=== PATIENT | male | born 1960 | race Caucasian/White ===

== ENCOUNTER 2021-04-28 21:31 | Emergency (ER) | payer OTHER, SELFPAY ==
[2021-04-28 21:49] VITALS: BP 171/100; PULSE 86; RESP 18; TEMP 36.6; O2SAT 97; BMI 26.6
--- NOTE | 2021-04-28 22:47 | PC.NURSE ---
large deep red area mid spine with 3 sml white pimples. Pt states he burned area with a hot knife when it wouldn't stop itching.
[2021-04-28 22:53] VITALS: BP 160/77
--- NOTE | 2021-04-28 22:55 | ED.SKABFB ---
HPI - Skin/Abscess/Foreign Bdy General Chief complaint: Skin/Abscess/Foreign Body Stated complaint: back infection Time Seen by Provider: 04/28/21 22:55 Source: patient Mode of arrival: ambulatory Limitations: no limitations History of Present Illness HPI narrative: Patient was working in the basement standing against wall 5 days ago noticed small pimple at the back since then is getting bigger and red with slight pus discharge. Related Data Home Medications Medication Instructions Recorded Confirmed fluticasone propionate 50 INTRANASAL 09/17/20 01/14/21 mcg/actuation nasal spray,suspension Previous Rx's Medication Instructions Recorded albuterol sulfate 90 mcg/actuation 2 puff INHALATION Q6H PRN 30 Days 01/14/21 aerosol inhaler (ProAir HFA) #18 g amlodipine 5 mg tablet 5 mg PO DAILY 30 Days #30 tab 01/14/21 ibuprofen 800 mg tablet 800 mg PO TID 30 Days #90 tab 01/14/21 tamsulosin 0.4 mg capsule 0.4 mg PO BEDTIME 30 Days #30 cap 01/14/21 cephalexin 500 mg capsule 500 mg PO QID 10 Days #40 cap 04/28/21 doxycycline hyclate 100 mg capsule 100 mg PO BID #20 cap 04/28/21 ibuprofen 600 mg tablet 600 mg PO Q6H PRN #20 tab 04/28/21 Allergies Allergy/AdvReac Type Severity Reaction Status Date / Time acetaminophen [ACETAMINOPHEN] Allergy Intermediate RASH Verified 01/14/21 09:20 Review of Systems Review of Systems: Yes all other systems are reviewed and are negative PMFSH Past Medical History Attestation statement: The following information was validated with the patient. Medical History Benign essential hypertension Blurred vision, bilateral Overweight (BMI 25.0-29.9) Surgical History H/O arthroscopy of right knee H/O bilateral inguinal hernia repair H/O repair of right rotator cuff History of sinus surgery Family History Family History Father No problems noted. Mother No problems noted. Social History Social History Alcohol intake: never Cigarette Packs Per Day: 1 Advance Directives: No Physical Exam Vital Signs: Vital Signs: Last Vital Signs Temp 97.9 F 04/28/21 21:49 Pulse 86 04/28/21 21:49 Resp 18 04/28/21 21:49 BP 160/77 H 04/28/21 22:53 Pulse Ox 97 04/28/21 21:49 Body Mass Index 26.6 Const: General: no acute distress Orientation/consciousness: patient oriented x3 HENMT: Head: Yes normocephalic Resp: Effort & Inspection: normal respiratory effort Auscultation: clear to auscultation bilaterally Cardio: Rate: regular rate Rhythm: regular rhythm Heart sounds: S1 normal heart sound present and S2 normal heart sound present Peripheral pulses: Peripheral pulses 2+ throughout GI: Inspection: Yes normal to inspection Palpation (GI): Soft to palpation and nontender Auscultation: normal bowel sounds Back/Spine/Pelvis: Back/spine/pelvis image: 1. Superficial abscess with surrounding cellulitis Neuro: General: patient oriented x3 Procedures Abscess I/D Site: back Local Anesthetic: lidocaine 2% Amount of anesthesia used (mL): 10 Technique: incised with blade Amount of fluid expressed (mL): 5 Sent for culture/gram staining?: No Irrigation: No Packing used?: iodoform Discharge Plan Discharge Clinical Impression: Abscess of skin or subcutaneous tissue Qualifiers: Site of cutaneous abscess: trunk Site of cutaneous abscess of trunk: back Qualified Code(s): L02.212 - Cutaneous abscess of back [any part, except buttock] Patient Disposition: Home, Self-Care Instructions: Abscess Incision and Drainage (DC) Additional Instructions: Local care of abscess as advised. Remove the packing in 2 days. Take antibiotic as prescribed. Report to the ER/PCP if increase in the redness or swelling or pain Prescriptions: New doxycycline hyclate 100 mg capsule 100 mg PO BID Qty: 20 RF: 0 cephalexin 500 mg capsule 500 mg PO QID 10 Days Qty: 40 RF: 0 ibuprofen 600 mg tablet 600 mg PO Q6H PRN (Reason: pain) Qty: 20 RF: 0 No Action fluticasone propionate 50 mcg/actuation spray,suspension intranasal RF: 0 albuterol sulfate [ProAir HFA] 90 mcg/actuation HFA aerosol inhaler 2 puff inhalation Q6H PRN (Reason: shortness of breath or wheezing) 30 Days Qty: 18 RF: 3 amlodipine 5 mg tablet 5 mg PO DAILY 30 Days Qty: 30 RF: 3 ibuprofen 800 mg tablet 800 mg PO TID 30 Days Qty: 90 RF: 1 tamsulosin 0.4 mg capsule 0.4 mg PO BEDTIME 30 Days Qty: 30 RF: 3 Interventions: ED Discharge Assessment Last Done: 04/29/21 00:27 Discharge Date/Time: 04/29/21 00:28
[2021-04-28] MEDS: Lidocaine HCl 2 % MPF 5 ML VIAL 10 ML INFILTRATI (23:09)
[2021-04-28] MEDS: cephALEXin 500 MG CAPSULE 1000 MG PO (23:09)
== END 2021-04-29 00:28 | disposition home or self-care (01) ==
PROVIDERS: Emergency Provider Internal Medicine
DX: L02.212 Cutaneous abscess of back [any part, except buttock and flank] (principal); Z79.899 Other long term (current) drug therapy; F17.210 Nicotine dependence, cigarettes, uncomplicated; Z71.6 Tobacco abuse counseling
CPT/HCPCS: 10060; 96360; 99283; 99284

== ENCOUNTER 2023-08-16 10:39 | Outpatient (AMB) | payer OTHER, SELFPAY ==
[2023-08-16 10:44] VITALS: BP 152/78; PULSE 79; O2SAT 93; BMI 24.4
--- NOTE | 2023-08-16 10:44 | MHC.PC.OV ---
Vital Signs 08/16/23 10:44 Height 5 ft 8 in Weight 160 lb 8 oz BMI 24.4 BP 152/78 H Blood Pressure Location Lt brachial Position Sitting Pulse 79 Pulse Source Pulse Oximeter Pulse Oximetry (%) 93 Oxygen Delivery Method Room Air Intake Visit Reasons: Sinus infection Hide Dropper Required: No Accompanied by: Self / Same As Patient Allergies acetaminophen [ACETAMINOPHEN] Allergy (Intermediate, Verified 08/16/23 11:10) RASH Medication List - Last Reconciled 08/16/23 by Edi Salazar MD albuterol sulfate 90 mcg/actuation (ProAir HFA) 2 puffs inhalation Q6H PRN 30 days amlodipine 5 mg PO DAILY 30 days fluticasone propionate 50 mcg/actuation 2 sprays intranasal DAILY ibuprofen 800 mg PO TID 30 days tamsulosin 0.4 mg PO BEDTIME 30 days Tobacco use date assessed: 08/16/23 Dental Screening Dental Screen Date: 08/16/23 Did you have a dental visit in the last 12 months?: No Did you have a dental problem in the last 6 months where you did not have access to dental care?: No Was dental information given to patient?: No HPI Sinus infection HPI Details Patient comes in today complaining of increased nasal and sinus congestion, sinus pain and discomfort for at least 2 weeks now States that 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 her home 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 States that he has tried several OTC remedies lately without any relief Relates (+) pressure and sometimes pain behind his eyes, has had on and off headaches and states that he has also had some bloody nasal discharge lately He denies any fever or sore throat Denies any chest pains, no SOB No nausea/vomiting, no abdominal pain No change in bowel habits noted States that he has lost a lot of weight over the past couple of years mostly by eating healthier and better foods; he was last seen by me in December 2020 although he has been in a couple of times for SDVs and was seen by our nurse practitioners then [facility] Medical History Smoker Benign essential hypertension Overweight (BMI 25.0-29.9) Blurred vision, bilateral Surgical History History of sinus surgery H/O repair of right rotator cuff (~2011) H/O bilateral inguinal hernia repair H/O arthroscopy of right knee (~1979) Family History (Updated 08/16/23 @ 11:30 by Edi Salazar MD) Mother COPD (chronic obstructive pulmonary disease) Father Lung cancer Social History Alcohol intake: never Cigarette Packs Per Day: 1 e-Cigarette/Vaping Use: Never Used Cognitive needs: No Hearing needs: No Vision needs: No Questionnaire PHQ-9 Over the last 2 weeks, how often have you been bothered by any of the following problems? 1. Little interest or pleasure in doing things: not at all 2. Feeling down, depressed, or hopeless: not at all 3. Trouble falling or staying asleep, or sleeping too much: not at all 4. Feeling tired or having little energy: not at all 5. Poor appetite or overeating: not at all 6. Feeling bad about yourself - or that you are a failure or have let yourself or your family down: not at all 7. Trouble concentrating on things, such as reading the newspaper or watching television: not at all 8. Moving or speaking so slowly that other people could have noticed. Or the opposite - being so fidgety or restless that you have been moving around a lot more than usual: not at all 9. Thoughts that you would be better off or of hurting yourself in some way: not at all Total score: 0 Depression Screening Interpretation: Negative Depression Screening Done: Yes 72612 - PHQ-9 Billing: Yes Source: Developed by Drs. Reza Pearl, Tanya Plasencia, Shai Delaney and colleagues, with an educational jeanette from [employer]. Thrive Questionnaire Date Thrive assessed: 08/16/23 I am a: Patient What is your living situation today?: I have a steady place to live Within the past 12 months, did the food you bought not last and you didn't have the money to get more?: Never true Within the past 12 months, did you worry whether your food would run out before you got money to buy more?: Never true Do you have trouble paying for medicines?: No Do you have trouble getting transportation to medical appointments?: No Do you have trouble paying your heating and electricity bill?: No Do you have trouble taking care of your child, family member or friend?: No Do you have trouble with day-to-day activities such as bathing, preparing meals, shopping, managing finances, etc.?: No Are you currently unemployed and looking for a job?: No Are you interested in more education?: No Please select the resources that you would like help with: None Currently or been in a relationship where the following occur: no concerns reported AUDIT C Alcohol Use Questionnaire (AUDIT-C) 1. How often do you have a drink containing alcohol?: Never Total Score: 0 Score Reviewed/Action Taken: Yes CASSIE-7 AMB Questionnaire CASSIE-7 Date CASSIE - 7 assessed: 08/16/23 Feeling nervous, anxious, or on edge: 0 = Not at all Not being able to stop or control worryin = Not at all Worrying too much about different things: 0 = Not at all Trouble relaxin = Not at all Being so restless that it is hard to sit still: 0 = Not at all Becoming easily annoyed or irritable: 0 = Not at all Feeling afraid as if something awful might happen: 0 = Not at all Total CASSIE-7 score (0-4 normal; 5-9 mild; 10-14 moderate; 15-21 severe): 0 Source: Developed by Drs. Reza Pearl, Tanya Plasencia, Shai Delaney and colleagues, with an educational jeanette from [employer]. Review of Systems Const Denies chills, Denies fatigue, Denies fever(s) and Reports headache(s) (on and off) Eyes Details: (+) on and off pain and pressure behind both eyes lately ENT Denies dysphagia, Denies dizziness, Denies otalgia, Reports headache(s) (on and off), Reports nasal congestion, Denies neck pain, Denies odynophagia, Reports sinus pain, Reports sinus pressure and Denies sore throat Card Denies chest pain, Denies palpitations and Denies dyspnea Resp Denies cough and Denies dyspnea GI Denies abdominal pain, Denies constipation, Denies dysphagia, Denies heartburn, Denies diarrhea, Denies nausea, Denies odynophagia and Denies vomiting Denies dysuria, Denies nocturia and Denies urinary frequency Musc Denies neck pain Skin/Breast Denies rash Neuro Denies dizziness and Reports headache(s) (on and off) Endo Denies fatigue and Denies palpitations Physical exam (Primary Care) Vital Signs: Last Vital Signs Pulse 79 08/16/23 10:44 BP 152/78 H 08/16/23 10:44 Pulse Ox 93 08/16/23 10:44 Oxygen Delivery Method Room Air 08/16/23 10:44 BMI result Body Mass Index 24.4 Tobacco/Smoking Status: Tobacco use Status Tobacco use date assessed 08/16/23 08/16/23 10:46 e-Cigarette/Vaping Use Never Used 08/16/23 10:46 PHQ-9: PHQ-9 Score PHQ-9: Total score 0 08/16/23 10:56 Depression Screening Interpretation: Negative Thrive Assessment: Date of Thrive Assessment Date Thrive assessed 08/16/23 08/16/23 10:46 Currently or been in a relationship where the following occur: no concerns reported Const General: no acute distress and alert HENMT Ears: TM's normal bilaterally and EAC's normal Face and sinus: Yes sinus tenderness (bilateral) Throat: Yes posterior oropharynx normal and Yes tonsils normal (no TP congestion) Neck Neck: Yes no lymphadenopathy and Yes supple Resp Auscultation: no rales, rhonchi (occasional) throughout and no wheezes Cardio Rate: regular rate Rhythm: regular rhythm Heart sounds: no murmurs GI Palpation (GI): Soft to palpation and nontender Auscultation: normal bowel sounds Skin General skin exam: no rashes or lesions noted Extrem General: Yes no clubbing, cyanosis or edema Assessment and Plan Assessment & Plan (1) Sinusitis: Code(s): J32.9 - Chronic sinusitis, unspecified Qualifiers: Sinusitis location: maxillary Chronicity: acute Recurrence: non-recurrent Qualified Code(s): J01.00 - Acute maxillary sinusitis, unspecified Plan: Will start patient empirically on Augmentin 875 mg BID x 10 days Advised that he can continue taking his OTC sinus meds PRN for symptomatic relief as well as his Fluticasone 50 mcg nasal spray QD PRN (2) Benign essential hypertension: Code(s): I10 - Essential (primary) hypertension Plan: Reinforced low sodium diet - goal is systolic BP of 120 mm or less Continue Amlodipine 5 mg QD for now (3) Smoker: Code(s): F17.200 - Nicotine dependence, unspecified, uncomplicated Plan: Counseled again on smoking cessation Plan To return in December 2023 for his annual physical examination Medications: New amoxicillin-pot clavulanate 875-125 mg 1 tab PO BID 10 days 20 tabs 0RF Coding Level of Care Code Est Pt Level 3 (63675) Diagnoses Acute non-recurrent maxillary sinusitis J01.00 Sinusitis location: maxillary Chronicity: acute Recurrence: non-recurrent Benign essential hypertension I10 Smoker F17.200
== END 2023-08-16 11:20 | disposition home or self-care (01) ==
PROVIDERS: PCP Internal Medicine; Visit Provider Internal Medicine
DX: J01.00 Acute maxillary sinusitis, unspecified (principal); I10 Essential (primary) hypertension; F17.200 Nicotine dependence, unspecified, uncomplicated
CPT/HCPCS: 99213

== ENCOUNTER 2025-01-21 16:26 | Outpatient (AMB) | payer OTHER, SELFPAY ==
--- NOTE | 2025-01-21 16:32 | A.OFFPC_ITS ---
Vital Signs 01/21/25 16:50 Height 5 ft 8 in Weight 184 lb BMI 28.0 BP 182/98 H Blood Pressure Location Lt brachial Position Sitting Pulse 81 Pulse Source Pulse Oximeter Temp 97.7 F Temp Source Temporal Artery Scan Pulse Oximetry (%) 94 Oxygen Delivery Method Room Air Intake Visit Reasons: annual exam [employer] Required: No Accompanied by: Self / Same As Patient Allergies acetaminophen [ACETAMINOPHEN] Allergy (Intermediate, Verified 01/22/25 02:33) RASH Medication List - Last Reconciled 01/21/25 by Edi Salazar MD amlodipine 5 mg PO DAILY 30 days fluticasone propionate 50 mcg/actuation 2 sprays intranasal DAILY ibuprofen 800 mg PO TID 30 days tamsulosin 0.4 mg PO BEDTIME 30 days Ventolin HFA 90 mcg/actuation (albuterol sulfate) 2 puffs inhalation Q6H PRN 30 days NS Tobacco use date assessed: 01/21/25 Fall risk assessment: No Falls in past year Last assessed Fall Risk: 01/21/25 Dental Screening Dental Screen Date: 01/21/25 Did you have a dental visit in the last 12 months?: Yes Did you have a dental problem in the last 6 months where you did not have access to dental care?: No Was dental information given to patient?: Patient has dentist HPI annual exam HPI Details Patient comes in today for his annual physical examination - he was last seen here almost 2 years ago on 08/16/2023 States that he has been out of his BP med for a couple of months now and needs this refilled as his blood pressure has been running high consistently for a few months now Patient is also requesting for Rx for Nicotine patches to help him quit smoking States that he has been coughing a lot and his chest feels congested all the time due to his smoking for years and would like to get a refill on his Albuterol inhaler as well Patient denies any fever or sore throat; denies any headaches or dizziness Denies any chest pains No nausea/vomiting, no abdominal pain No change in bowel habits noted He denies any acute urinary symptoms Patient adds that he has been noticing recurrent itching especially on his forearms and that he has noticed what he thinks look like susan tracks on his forearms and he is concerned that he may have scabies - would like to get Rx to treat this He has been referred for a screening colonoscopy in the past but it does not appear that patient ever had this done He also has not had any follow up labs done here at [facility] in over 5 years [facility] Medical History Smoker Benign essential hypertension Overweight (BMI 25.0-29.9) Blurred vision, bilateral Surgical History History of sinus surgery H/O repair of right rotator cuff (~2011) H/O bilateral inguinal hernia repair H/O arthroscopy of right knee (~1979) Family History Mother COPD (chronic obstructive pulmonary disease) Father Lung cancer Social History Housing: House Alcohol intake: never Cigarette Packs Per Day: 1 e-Cigarette/Vaping Use: Never Used service: No Current occupational status: unemployed Cognitive needs: No Hearing needs: No Vision needs: No Questionnaire PHQ-9 Over the last 2 weeks, how often have you been bothered by any of the following problems? 1. Little interest or pleasure in doing things: not at all 2. Feeling down, depressed, or hopeless: not at all 3. Trouble falling or staying asleep, or sleeping too much: not at all 4. Feeling tired or having little energy: not at all 5. Poor appetite or overeating: not at all 6. Feeling bad about yourself - or that you are a failure or have let yourself or your family down: not at all 7. Trouble concentrating on things, such as reading the newspaper or watching television: not at all 8. Moving or speaking so slowly that other people could have noticed. Or the opposite - being so fidgety or restless that you have been moving around a lot more than usual: not at all 9. Thoughts that you would be better off or of hurting yourself in some way: not at all Total score: 0 Depression Screening Interpretation: Negative Depression Screening Done: Yes 50551 - PHQ-9 Billing: Yes Source: Developed by Tanya OliveiraW. Luis Angel, Shai Delaney and colleagues, with an educational jeanette from [employer]. Thrive Questionnaire Date Thrive assessed: 01/21/25 I am a: Patient What is your living situation today?: I choose not to answer this question Within the past 12 months, did the food you bought not last and you didn't have the money to get more?: I choose not to answer this question Within the past 12 months, did you worry whether your food would run out before you got money to buy more?: I choose not to answer this question Do you have trouble paying for medicines?: I choose not to answer this question Do you have trouble getting transportation to medical appointments?: I choose not to answer this question Do you have trouble paying your heating and electricity bill?: I choose not to answer this question Do you have trouble taking care of your child, family member or friend?: I choose not to answer this question Do you have trouble with day-to-day activities such as bathing, preparing meals, shopping, managing finances, etc.?: I choose not to answer this question Are you currently unemployed and looking for a job?: I choose not to answer this question Are you interested in more education?: I choose not to answer this question Please select the resources that you would like help with: None Currently or been in a relationship where the following occur: I choose not to answer THRIVE Score: 0 AUDIT C Alcohol Use Questionnaire (AUDIT-C) 1. How often do you have a drink containing alcohol?: Never 3. How often do you have six or more drinks on one occasion?: Never Total Score: 0 Score Reviewed/Action Taken: Yes CASSIE-7 AMB Questionnaire CASSIE-7 Date CASSIE - 7 assessed: 01/21/25 Feeling nervous, anxious, or on edge: 0 = Not at all Not being able to stop or control worryin = Not at all Worrying too much about different things: 0 = Not at all Trouble relaxin = Not at all Being so restless that it is hard to sit still: 0 = Not at all Becoming easily annoyed or irritable: 0 = Not at all Feeling afraid as if something awful might happen: 0 = Not at all Total CASSIE-7 score (0-4 normal; 5-9 mild; 10-14 moderate; 15-21 severe): 0 Source: Developed by Drs. Reza Pearl, Tanya Plasencia, Shai Delaney and colleagues, with an educational jeanette from [employer]. CASSIE-7 Assessment Billing CASSIE-7 Assessment Tool: CASSIE-7 Assessment 96820 Review of Systems Const Denies chills, Denies fatigue, Denies fever(s), Denies headache(s), Denies malaise and Denies weakness Eyes Denies blurry vision, Denies change in vision, Denies irritation and Denies itchy eyes ENT Denies dysphagia, Denies dizziness, Denies otalgia, Denies headache(s), Denies nasal congestion, Denies neck pain, Denies odynophagia and Denies sore throat Card Denies chest pain, Denies rapid heart rate, Denies irregular heart rhythm, Denies palpitations and Reports dyspnea on exertion Resp Reports chest congestion, Reports cough (recurrent), Denies pain with cough, Reports dyspnea on exertion and Denies wheezing GI Denies abdominal pain, Denies bloating, Denies constipation, Denies dysphagia, Denies heartburn, Denies diarrhea, Denies nausea, Denies odynophagia and Denies vomiting Denies hematuria, Denies difficulty urinating, Denies dysuria, Denies urinary frequency and Denies urinary urgency Musc Denies back pain, Denies arthralgias, Denies joint swelling, Denies muscle weakness and Denies neck pain Skin/Breast Denies change in pigmentation, Reports pruritus, Denies lesions, Reports rash (on both forearms - see HPI) and Denies unusual bruising Neuro Denies dizziness, Denies headache(s), Denies paresthesias and Denies weakness Endo Denies fatigue and Denies palpitations Aller/Immun Denies itchy eyes and Denies wheezing Physical exam (Primary Care) Vital Signs: Last Vital Signs Temp 97.7 F 01/21/25 16:50 Pulse 81 01/21/25 16:50 BP 182/98 H 01/21/25 16:50 Pulse Ox 94 01/21/25 16:50 Oxygen Delivery Method Room Air 01/21/25 16:50 BMI result Body Mass Index 28.0 Tobacco/Smoking Status: Tobacco use Status Tobacco use date assessed 01/21/25 01/21/25 17:01 e-Cigarette/Vaping Use Never Used 01/21/25 16:33 PHQ-9: PHQ-9 Score PHQ-9: Total score 0 01/21/25 17:01 Depression Screening Interpretation: Negative Thrive Assessment: Date of Thrive Assessment Date Thrive assessed 01/21/25 01/21/25 16:33 Currently or been in a relationship where the following occur: I choose not to answer Const General: no acute distress, alert and awake Orientation/consciousness: patient oriented x3 HENMT Head: Yes normocephalic and Yes atraumatic Ears: external ears normal, TM's normal bilaterally and EAC's normal General nose exam: No nasal discharge present Face and sinus: Yes normal facial exam and Yes sinuses nontender Teeth and gingiva: dentition normal Throat: Yes posterior oropharynx normal and Yes tonsils normal (no TP congestion) Eyes Eyelids: Yes eyelids normal Conjunctivae: conjunctivae normal Pupils: Equal, round and reactive pupils present EOM: EOMs intact bilaterally Neck Neck: Yes no lymphadenopathy and Yes supple Thyroid: Thyroid normal Resp Auscultation: no crackles, no rales, rhonchi (scattered) throughout, no wheezes and diminished lung sounds bilateral Cardio Rate: regular rate Rhythm: regular rhythm Heart sounds: no murmurs GI Palpation (GI): Soft to palpation, nontender and No hepatosplenomegaly present Auscultation: normal bowel sounds General: Yes no CVA tenderness Back/Spine/Pelvis Back: no CVA tenderness Thoracic/Lumbar Spine: thoracic and lumbar spine normal to inspection Skin Other: (+) few crusted-linear lesions on the volar aspect of both ofrearms Neuro General: patient oriented x3, moves all extremities, no focal motor deficits and CN's II-XI intact bilaterally Cranial nerves: Yes Equal, round and reactive pupils present Cognition (Neuro): normal cognition Gait exam (Neuro): Normal gait present Extrem General: Yes no clubbing, cyanosis or edema Coding Level of Care Code Est Pt Prev Care 40-64y(31844) Diagnoses Annual physical exam Z00.00 Benign essential hypertension I10 Chest congestion R09.89 Pruritic rash L28.2 Benign prostatic hyperplasia with urinary hesitancy N40.1; R39.11 Lower urinary tract symptom detail: urinary hesitancy Smoker F17.200 Colon cancer screening Z12.11 Additional Codes CASSIE-7 Assessment Billing - CASSIE-7 Assessment Tool: CASSIE-7 Assessment 71912 ([id number]) PHQ-9 - 61287 - PHQ-9 Billing: Yes ([id number]) Assessment & Plan Assessment & Plan (1) Annual physical exam: Code(s): Z00.00 - Encounter for general adult medical examination without abnormal findings Category: Medical Plan: Check labs - patient is advised to try to get these done RYLIE as he has not had any follow up labs done (at least here at [facility]) in over 5 years He is long overdue to start colon cancer screening and will be referred to GI for this (2) Benign essential hypertension: Code(s): I10 - Essential (primary) hypertension Category: Medical Plan: Patient states that he has been out of his BP med for a few weeks Will start him back on Amlodipine 5 mg QD - he is reminded of goal og systolic BP at 120 mm or less (3) Chest congestion: Code(s): R09.89 - Other specified symptoms and signs involving the circulatory and respiratory systems Category: Medical Plan: Patient is advised that due to his long smoking history, he most likely has COPD Will send him for chest x-rays for further evaluation Chest x-rays done back in October 2019 came out normal Per request, will refill his Albuterol HFA 1 to 2 inhalations Q 6 hours PRN (4) Pruritic rash: Code(s): L28.2 - Other prurigo Category: Medical Plan: Per request, will start him on empiric Tx with Permethrin 5% lotion as instructed (5) Benign prostatic hyperplasia with lower urinary tract symptoms: Code(s): N40.1 - Benign prostatic hyperplasia with lower urinary tract symptoms Category: Medical Qualifiers: Lower urinary tract symptom detail: urinary hesitancy Qualified Code(s): N40.1 - Benign prostatic hyperplasia with lower urinary tract symptoms; R39.11 - Hesitancy of micturition Plan: Continue Tamsulosin 0.4 mg Q HS Follow up with urology as scheduled (6) Smoker: Code(s): F17.200 - Nicotine dependence, unspecified, uncomplicated Category: Social Hx Plan: Patient is again counseled on complete smoking cessation Per request, will start him on Nicotine patches to help him quit smoking (7) Colon cancer screening: Code(s): Z12.11 - Encounter for screening for malignant neoplasm of colon Category: Medical Plan: Patient was referred for colon cancer screening a few years ago but it appears that he never followed through with this Will refer him to GI again for colon cancer screening Plan Follow up in 3 months Orders: Orders 2 Comprehensive Jewett. Panel Fast 01/21/25 E78.00 - Pure hypercholesterolemia, unspecified, Z00.00 - Encounter for general adult medical examination without abnormal findings UA CC w/rflx Micro + Cult 01/21/25 R30.0 - Dysuria, Z00.00 - Encounter for general adult medical examination without abnormal findings Vitamin D 25-OH Total 01/21/25 E55.9 - Vitamin D deficiency, unspecified, Z00.00 - Encounter for general adult medical examination without abnormal findings Prostate Specific Antigen 01/21/25 N40.0 - Benign prostatic hyperplasia without lower urinary tract symptoms, Z00.00 - Encounter for general adult medical examination without abnormal findings XR chest 2V 01/21/25 F17.200 - Nicotine dependence, unspecified, uncomplicated, R05.9 - Cough, unspecified Complete Blood Count Auto Diff 01/21/25 D64.9 - Anemia, unspecified, Z00.00 - Encounter for general adult medical examination without abnormal findings Lipid Panel 01/21/25 E78.00 - Pure hypercholesterolemia, unspecified, Z00.00 - Encounter for general adult medical examination without abnormal findings TSH reflex Free T4 01/21/25 E78.00 - Pure hypercholesterolemia, unspecified, Z00.00 - Encounter for general adult medical examination without abnormal findings Vitamin B12 and Folate 01/21/25 E53.8 - Deficiency of other specified B group vitamins, Z00.00 - Encounter for general adult medical examination without abnormal findings Referrals Gastroenterology Referral Z12.11 - Encounter for screening for malignant neoplasm of colon Medications: New nicotine 1 patch transdermal Q24H 28 days 28 ea 5RF F17.200 - Nicotine dependence, unspecified, uncomplicated nicotine 1 patch transdermal DAILY 7 days 7 ea 0RF F17.200 - Nicotine dependence, unspecified, uncomplicated nicotine 1 patch transdermal DAILY 7 days 7 ea 0RF F17.200 - Nicotine dependence, unspecified, uncomplicated permethrin 5% Apply a thin layer of the cream or lotion from neck to toes. You must thoroughly cover all areas of the body. Pay special attention to areas between fingers and toes, under nails, groin, arm pits, buttocks, palms and soles of feet. Leave medicine on overnight and wash off completely in shower the next day. SHOULD also wash all bed sheets and linens then in hot water and bleach and dry in HIGH heat. Can repeat SECOND dose after 14 days IF needed 1 appl topical ONCE 60 grams 0RF B86 - Scabies Changed From amlodipine 5 mg PO DAILY 30 days 30 tabs 3RF I10 - Essential (primary) hyp ertension To amlodipine 5 mg PO DAILY 90 days 90 tabs 1RF I10 - Essential (primary) hypertension Refilled Ventolin HFA 90 mcg/actuation (albuterol sulfate) 2 puffs inhalation Q6H 30 days PRN 18 grams 1RF shortness of breath or wheezing NS F17.200 - Nicotine dependence, unspecified, uncomplicated
[2025-01-21 16:50] VITALS: BP 182/98; PULSE 81; TEMP 36.5; O2SAT 94; BMI 28.0
--- OUTSIDE RECORDS SUMMARY | 2025-01-21 18:37 | XMS_ITS | Clinical Summary ---
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 Name Role Phone Unavailable Primary Care Provider Unavailabl e Social History Tobacco Use Types Packs/Day Years Used Date Smoking Tobacco: Never Assessed Sex and Gender Information Value Date Recorded Sex Assigned at Male 07/31/2022 10:24 AM EDT Legal Sex Male 10:24 AM EDT Gender Identity Male 01/05/2025 10:50 AM EDT Sexual Orientation Straight 01/05/2025 10 :50 AM EDT Plan of Treatment Upcoming Encounters Date Type Department Care Team (Late st Contact Info) Description 01/28/2025 10:00 AM EDT Office Visit [facility] [address] [place] [address] Fernando Pretty, DMD [address] [place] [address] Health Maintenance Due Date Last Done Comments CT Colonography 1960 Colonoscopy 1960 Colorectal Cancer Screening 1960 Depression Screening 1960 FIT DNA/Cologuard 1960 FIT 1960 FOBT 1960 HIV Screening 1960 Lipid Panel 1960 SDOH Screening 1960 Sigmoidoscopy 1960 Alcohol/Substance Use Screening 1972 Tobacco Screening 1972 Hepatitis C Screening 1978 Pneumococcal Vaccine: 50+ Ye ars (1 of 1 - PCV) 2010 Zoster Vaccines (1 of 2) 2010 DTaP/Tdap/Td Vaccines (1 - Tdap) 03/21/2019 03/20/20 COVID-19 Vaccine (1 - 2023-2 5 season) 2024 Influenza Vaccine (#1) 2024 RSV Patients and Pa tients Aged 60 years or older (1 - 1-dose 75+ series) 2035 HIB Vaccines Aged Out No longer eligi ble based on patient's age to complete this topic HPV Vaccines Aged Out No longer eligi ble based on patient's age to complete this topic Hepatitis A Vaccines Aged Out No long er eligible based on patient's age to complete this topic Hepatitis B Vaccines Aged Out No long er eligible based on patient's age to complete this topic IPV Vaccines Aged Out No longer eligi ble based on patient's age to complete this topic Meningococcal Vaccine Aged Out No marques ellis eligible based on patient's age to complete this topic RSV under 20 months Aged Out No longe r eligible based on patient's age to complete this topic Rotavirus Vaccines Aged Out No longer eligible based on patient's age to complete this topic Insurance [facility] MEDICAID STAND ADULT
--- OUTSIDE RECORDS SUMMARY | 2025-01-21 18:37 | XMS_ITS | Continuity of Care Document ---
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 Phone Unavailable Unavailable Unavailable Allergies, Adverse Reactions, Alerts Substance Reaction Status Criticality shellfish derived Active No Informa tion Medications Medication Instructions Dosage Effective Dates (start - stop) Status Comments OneTouch Ultra Test strips USE DIRECTED TO TEST BLOOD SUGAR THREE TIMES A DAY - Active TRILIPIX DR 135 MG CAPSULE TAKE ONE CAPSULE BY MOUTH EVERY DAY - Active METFORMIN [...] by oral route every day - Active ONETOUCH ULTRA BLUE TEST STRP USE DIRECTED TO TEST BLOOD SUGAR THREE TIMES A DAY - No Longer Active Procedures Procedure Date Offic/outpt E&m Estab Low-mod 8 Lipid Panel Routine Venipuncture GLYCOSYLATED HEMOGLOBIN TEST OFFICE/OUTPATIENT VISIT, EST Calcium; Tot Routine Venipuncture Electrolyte Panel Transferase; Alanine Amino GLYCOSYLATED HEMOGLOBIN TEST Lipid Panel Urea Nitro; Luis Creatinine; Bld Psa, total screening Transferase; Aspartate Amino Albumin; Serum Complete Cbc, Automated Immuniz Admin; 1/combo Vacc/to 17 Flu Vaccine No Preserv 3 & > Offic/outpt E&m Estab Low-mod Lipid Panel Routine Venipuncture Transferase; Aspartate Amino Complete Cbc, Automated Creatinine; Bld Albumin; Serum Bilirubin; Tot Electrolyte Panel Urea Nitro; Luis Calcium; Tot ASSAY OF LIPASE GLYCOSYLATED HEMOGLOBIN TEST Transferase; Alanine Amino Offic/outpt E&m Estab Low-mod Psa, total screening Routine Venipuncture Transferase; Alanine Amino Electrolyte Panel GLYCOSYLATED HEMOGLOBIN TEST Transferase; Aspartate Amino Creatinine; Bld Lipid Panel Urea Nitro; Luis GLYCOSYLATED HEMOGLOBIN TEST Routine Venipuncture Transferase; Alanine Amino Transferase; Aspartate Amino Basic Metabolic Panel Immuniz Admin; 1/combo Vacc/to 16 Flu Vir Vacc-split 3 Yr & > Im 16 OFFICE/OUTPATIENT VISIT, EST Lipid Panel Routine Venipuncture GLYCOSYLATED HEMOGLOBIN TEST Creatinine; Bld Electrolyte Panel Advance Directives Directive Yes / No Effective Date File Name No Information Encounters Encounter Description Practice Location Reason(s) For Visit Diagnoses Date Provider Providers Copied on Encounter [address], [id number], tel:[phone] [facility] No Information 2 No Information [address], [id number], tel:[phone] [facility] No Information 0 No Information [facility] , [address] [place] [address], [id number], [place] tel:[phone] [facility] No Information 0 No Information [facility] , [address] [place] [address], [id number], [place] tel:[phone] [facility] No Information 9 No Information [address], [id number], [place] tel:[phone] [facility] No Information 8 No Information Offic/outpt E&m Estab Low-mod [address], [id number], [place] tel:[phone] [facility] diabetes (chief complaint)hyp ertension (chief complaint)hyp erlipidemia (chief complaint) Type 2 diabetes mellitus without complication, without long-term current use of insulinPure hypercholeste rolemia 8 No Information [address], [id number], [place] tel:[phone] [facility] Pure hypercholeste rolemia, unspecified 8 No Information [address], [id number], [place] tel:[phone] [facility] Type 2 diabetes mellitus with hyperglycemia , with long-term current use of insulinLong term (current) use of insulinPure hypercholeste rolemia 8 No Information [facility] , [address] [place] [address], [id number], [place] tel:[phone] [facility] Complete tear of right rotator cuff 8 No Information [facility] , [address] [place] [address], [id number], [place] tel:[phone] [facility] Right shoulder pain, unspecified chronicity 8 No Information OFFICE/OUTPA TIENT VISIT, EST [facility] , [address] [place] [address], [id number], [place] tel:[phone] [facility] Follow Up of hypertension (chief complaint)Fol low Up of hyperlipidemi a (chief complaint)Fol low Up of diabetes (chief complaint)adryan ulder pain (chief complaint) Right shoulder pain, unspecified chronicityEss ential (primary) hypertensionU ncontrolled type 2 diabetes mellitus without complication, with long-term current use of insulinLong term (current) use of insulinPure hypercholeste rolemia 8 No Information [address], [id number], [place] tel:[phone] [facility] Essential (primary) hypertensionT ype 2 diabetes mellitus with hyperglycemia , with long-term current use of insulinLong term (current) use of insulin 8 No Information [facility] , [address] [place] [address], [id number], [place] tel:[phone] [facility] Type 2 diabetes mellitus with hyperglycemia Essential (primary) hypertensionT ype 1 diabetes mellitus without complications 8 No Information [address], [id number], [place] tel:[phone] [facility] No Information 8 No Information Offic/outpt E&m Estab [address], [id number], [place] tel:[phone] [facility] Follow Up of diabetes (chief complaint)Fol low Up of hypertension (chief complaint)Flu vaccine (chief complaint) Essential (primary) hypertensionH yperlipidemia , unspecifiedTy pe 2 diabetes mellitus w/o complication 7 No Information [address], [id number], tel:[phone] [facility] Essential (primary) hypertensionH yperlipidemia , unspecifiedTy pe 2 diabetes mellitus w/o complicationA bnormal weight loss 7 No Information [address], [id number], [place] tel:[phone] [facility] Essential (primary) hypertensionH yperlipidemia , unspecifiedTy pe 2 diabetes mellitus w/o complication 7 No Information Offic/outpt E&m Estab [facility], [id number], tel:[phone] [facility] diabetes (chief complaint)hyp ertension (chief complaint) Type 2 diabetes mellitus w/o complicationH yperlipidemia , unspecifiedEs sential (primary) hypertension 7 No Information [address], [id number], [place] tel:[phone] [facility] Hyperlipidemi a, unspecifiedHy pertensionTyp e 2 diabetes mellitus w/o complicationE ncounter for screening for malignant neoplasm of prostate No Information [address], [id number], [place] tel:[phone] [facility] Type 2 diabetes mellitus w/o complication 7 No Information OFFICE/OUTPA TIENT VISIT, EST [address], [id number], [place] tel:[phone] [facility] diabetes (chief complaint)hyp ertension (chief complaint)adryan ulder pain (chief complaint) Pain in left shoulderPain in right shoulderHyper tensionType 2 diabetes mellitus w/o complication 6 No Information [address], [id number], tel:[phone] [facility] No Information No Information [facility] , [address] [place] [address], [id number], tel:[phone] [facility] No Information 6 No Information [address], [id number], tel:[phone] [facility] Hyperlipidemi a, unspecifiedHy pertensionTyp e 2 diabetes mellitus w/o complication 6 No Information [facility] , [address] [place] [address], [id number], tel:[phone] No Information 6 No Information Family History [...] type Covered green party ID Authoriza tion(s) [facility] [id number] [facility] [id number] [facility] [id number] Social History Type Description Quantity Date Captured Comments Alcohol Use Details Unknown Caffeine Use Details Unknown Tobacco Use Status No Information Smoking Status No Information Sex Male Sexual Orientation Choose not to disclose Gender Identity Choose not to disclose Chief Complaint And Reason For Visit No Information Reason For Referral Reason For Referral No Information Plan Of Treatment Date Type Action Status Goal Hemoglobin A1C. Due on due Goal Foot exam. Due on 2 due Goal Urine microalbumin. Due on due Goal Diabetes Screening. Due on J due Goal Urinalysis. Due on 22 due Goal CBC due Goal Electrolyte Panel. Due on Ap due Goal Electrocardiogra m, complete (ECG). Due [...] Goal Annual PE. Due on due Goal Chest CT WITHOUT [...] due Goal Zoster-Shingrix. Due on due Goal Td,preservative free (7 [...] C AB TEST. Due on due Goal Annual PE. Due on 6 due Goal Tetanus/diphth T ox-adult-im/je. Due on due Goal HIV-1 AG W/HIV-1 & HIV-2 AB. Due on due Referral Ordered: Referrals: Endocrinology, Diabetes and Metabolism. Evaluate and treat ordered Referral Referred To: [facility] [address] [place], [phone] Ordered: Referrals: Orthopedic Surgery. [facility]. Evaluate and treat ordered Referral Ordered: Referrals: [...] arms, tingling in the legs and weakness. Functional Status Date Functional Assessmen t No Information Instructions Date Instruction Additional Infor mavis A summary of your treatment goals based on the recommendations of the [place] [employer] Standards of Care 2017 Your goal Hemoglobin A1C is: <7%Your goal blood pressure is : 130/80 (140/90)Your total cholesterol goal is < 200 and LDL cholesterol goal is : <100 (or <70???)Your weight: Your goal is 180Exercise: You are physically active on a daily baisis. Continue this through the winterFunctional lifestyle goal: Eat healthier foods at nightBarriers addressed: Busy lifestyle with work. Related to Type 2 diabetes mellitus w/o complication A summary of your treatment goals based on the recommendations of the [place] [employer] Standards of Care 2017 Your goal Hemoglobin A1C is: < 8%Your goal blood pressure is : 130/80 (140/90) is at goalYour total cholesterol goal is < 200 and LDL cholesterol goal is : <100 (or <70???)Your weight: Continue to eat heart healthy dietExercise: difficult with current work life. Make effort as possible. Related to Type 2 diabetes mellitus w/o complication Assessments Type Assessment Date No Information Patient Care Teams Name Effective Dates (start - stop) Status Members No Information
== END 2025-01-21 17:14 | disposition home or self-care (01) ==
LOC: HO.HMCH 16:27
PROVIDERS: PCP Internal Medicine; Visit Provider Internal Medicine
DX: Z00.00 Encounter for general adult medical examination without abnormal findings (principal); I10 Essential (primary) hypertension; R09.89 Other specified symptoms and signs involving the circulatory and respiratory systems; L28.2 Other prurigo; N40.1 Benign prostatic hyperplasia with lower urinary tract symptoms; R39.11 Hesitancy of micturition; F17.200 Nicotine dependence, unspecified, uncomplicated; Z12.11 Encounter for screening for malignant neoplasm of colon

== ENCOUNTER → 2025-01-21 16:26 | Outpatient (BNVA) | payer OTHER, SELFPAY | PROVIDERS: PCP Internal Medicine; Visit Provider Internal Medicine | DX: Z00.00 Encounter for general adult medical examination without abnormal findings (principal); I10 Essential (primary) hypertension; R09.89 Other specified symptoms and signs involving the circulatory and respiratory systems; L28.2 Other prurigo; N40.1 Benign prostatic hyperplasia with lower urinary tract symptoms; R39.11 Hesitancy of micturition; F17.200 Nicotine dependence, unspecified, uncomplicated; Z79.899 Other long term (current) drug therapy | CPT/HCPCS: 96127; 99396 ==

== ENCOUNTER 2025-04-09 10:02 | Outpatient (AMB) | payer OTHER, SELFPAY ==
--- OUTSIDE RECORDS SUMMARY | 2021-12-09 10:29 | XMS_ITS | Continuity of Care Document ---
Author Organization 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 Name Role Phone Unavailable Unavailable Unavailable Allergies, Adverse Reactions, Alerts Substance Reaction Status Criticality shellfish derived Active No Informa tion Medications Medication Instructions Dosage Effective Dates (start - stop) Status Comments OneTouch Ultra Test strips USE DIRECT ED TO TEST BLOOD SUGAR THREE TIMES A DAY - Active TRILIPIX DR 135 MG CAPSULE TAKE ONE CAPS ULE BY MOUTH EVERY DAY - Active METFORMIN HCL 1,000 MG TABLET TAKE ONE TABLET BY MOUTH TWICE A DAY WITH MORNING AND EVENING MEALS - Active LISINOPRIL 20 MG TABLET TAKE ONE TABLET BY MOUTH EVERY DAY - Active atorvastatin 20 mg tablet take 1 tablet by oral route every day 20 MG - Active HYDROCHLOROTHIAZIDE 25 MG TAB TAKE ONE TABLET BY MOUTH EVERY DAY 25 MG - Active Invokana 300 mg tablet take 1 tablet by oral route every day before the first meal of the day 300 MG - Active Unifine Pentips 31 gauge x 5/16 needle Use as Directing Every Evening - Active Aspir-81 81 mg tablet,delayed release take 1 tablet by oral route every day - Active Advance Directives Directive Yes / No Effective Date File Name No Information Encounters Encounter Description Practice Location Reason(s) For Visit Diagnoses Date Provider [address], [id number], [place] tel:[phone] [facility] No Information No Information Community [address], [id number], [place] tel:[phone] [facility] No Information 0 No Information [address], [id number], [place] tel:[phone] [facility] No Information 0 No Information [address], [id number], [place] tel:[phone] [facility] No Information 9 No Information [address], [id number], [place] tel:[phone] [facility] No Information 8 No Information [address], [id number], [place] tel:[phone] [facility] diabetes (chief complaint)hyper tension (chief complaint)hyper lipidemia (chief complaint) Type 2 diabetes mellitus without complication, without long-term current use of insulinPure hypercholesterolemia 8 [address], [id number], [place] tel:[phone] [facility] Pure hypercholesterolemia , unspecified 8 No Information [address], [id number], [place] tel:[phone] [facility] Type 2 diabetes mellitus with hyperglycemia, with long-term current use of insulinLong term (current) use of insulinPure hypercholesterolemia 8 No Information [address], [id number], [place] tel:[phone] [facility] Complete tear of right rotator cuff 8 No Information [address], [id number], [place] tel:[phone] [facility] Right shoulder pain, unspecified chronicity [address] , [place], [id number], [place] tel:[phone] [facility] Follow Up of hypertension (chief complaint)Follo w Up of hyperlipidemia (chief complaint)Follo w Up of diabetes (chief complaint)shoul kiki pain (chief complaint) Right shoulder pain, unspecified chronicityEssential (primary) hypertensionUncontro lled type 2 diabetes mellitus without complication, with long-term current use of insulinLong term (current) use of insulinPure hypercholesterolemia 8 [address], [id number], [place] tel:[phone] [facility] Essential (primary) hypertensionType 2 diabetes mellitus with hyperglycemia, with long-term current use of insulinLong term (current) use of insulin 8 No Information [address], [id number], [place] tel:[phone] [facility] Type 2 diabetes mellitus with hyperglycemiaEssenti al (primary) hypertensionType 1 diabetes mellitus without complications 8 No Information [address], [id number], [place] tel:[phone] [facility] No Information 8 No Information [address], [id number], [place] tel:[phone] [facility] Follow Up of diabetes (chief complaint)Follo w Up of hypertension (chief complaint)Flu vaccine (chief complaint) Essential (primary) hypertensionHyperlip idemia, unspecifiedType 2 diabetes mellitus w/o complication 7 No Information [address], [id number], [place] tel:[phone] [facility] Essential (primary) hypertensionHyperlip idemia, unspecifiedType 2 diabetes mellitus w/o complicationAbnormal weight loss 7 No Information [address], [id number], [place] tel:[phone] [facility] Essential (primary) hypertensionHyperlip idemia, unspecifiedType 2 diabetes mellitus w/o complication 7 No Information [address], [id number], [place] tel:[phone] [facility] diabetes (chief complaint)hyper tension (chief complaint) Type 2 diabetes mellitus w/o complicationHyperlip idemia, unspecifiedEssential (primary) hypertension 7 No Information [address], [id number], [place] tel:[phone] [facility] Hyperlipidemia, unspecifiedHypertens ionType 2 diabetes mellitus w/o complicationEncounte r for screening for malignant neoplasm of prostate 7 No Information [address], [id number], [place] tel:[phone] [facility] Type 2 diabetes mellitus w/o complication 7 No Information [address], [id number], [place] tel:[phone] [facility] diabetes (chief complaint)hyper tension (chief complaint)shoul kiki pain (chief complaint) Pain in left shoulderPain in right shoulderHypertension Type 2 diabetes mellitus w/o complication 6 No Information [address], [id number], [place] tel:[phone] [facility] No Information 6 No Information [address], [id number], [place] tel:[phone] [facility] No Information 6 No Information [address], [id number], [place] tel:[phone] [facility] Hyperlipidemia, unspecifiedHypertens ionType 2 diabetes mellitus w/o complication 6 [address], [id number], [place] tel:[phone] No Information 6 No Information Family History Family Member Type Diagnosis Age At Onset No Information Immunizations Vaccine Date Status Comments Influenza, injectable, trivalent, split virus, preservative free, 4 years and older, Fluvirin administered Source: New Im munization Record Influenza, injectable, trivalent, split virus, 4 years and older, Fluvirin administered Source: New Immuniza tion Record Influenza administered Note: Medent co nversion ; Source: Source Unspecified Influenza administered Note: Medent co nversion ; Source: Source Unspecified Influenza administered Note: Medent co nversion ; Source: Source Unspecified Influenza administered Note: Medent co nversion ; Source: Source Unspecified Payers Payer name Insurance type Covered green party ID Authoriza tion(s) [facility] [id number] [facility] [id number] [facility] [id number] Social History Type Description Quantity Date Captured Comments Alcohol Use Details Unknown Caffeine Use Details Unknown Tobacco Use Status No Information Smoking Status No Information Sex Male Sexual Orientation Choose not to disclose Gender Identity Choose not to disclose 019 Chief Complaint And Reason For Visit No Information Plan Of Treatment Date Type Action Status Goal HIV-1 AG W/HIV-1 & HIV-2 AB. Due on due Goal Dietitian. Due on due Goal Dilated eye exam. Due on Nov due Goal BMI counseling d ocumented in Health Promotion Plan. Due on due Goal INFLUENZA. Due on 8 due Goal Colonoscopy. Due on 022 due Goal Chlamydia/GC Amp lification. Due on due Goal FOBT. Due on due Goal Zoster vaccine (1st). Due on due Goal Chest CT WITHOUT Contrast. Due on due Goal Depression screening. Due on due Goal Zoster vaccine (2nd). Due on due Goal Annual PE. Due on due Goal PSA. Due on due Goal HEPATITIS C AB TEST. Due on due Goal Urinalysis. Due on due Goal CBC due Goal Creatinine. Due on due Goal Electrolyte Panel. Due on due Goal Hemoglobin A1C. Due on due Goal Electrocardiogra m, complete (ECG). Due on due Goal Foot exam. Due on due Goal Urine microalbumin. Due on due Goal Diabetes Screening. Due on due Goal Calcium; Tot due Goal HIV-1 AG W/HIV-1 & HIV-2 AB. Due on due Goal Chlamydia/GC Amp lification. Due on due Goal Td,preservative free (7 yrs and older). Due on due Goal Chest CT WITHOUT Contrast. Due on due Goal HEPATITIS C AB TEST. Due on due Goal Zoster-Shingrix. Due on due Goal Tetanus/diphth T ox-adult-im/je. Due on due Goal Annual PE. Due on 8 due Goal Influenza virus vaccine, quadrivalent, split virus, preservative free, when administered to individu. Due on due Goal Chlamydia/GC Amp lification. Due on due Goal Annual PE. Due on 8 due Goal Influenza virus vaccine, quadrivalent, split virus, preservative free, when administered to individu. Due on due Goal Chest CT WITHOUT Contrast. Due on due Goal Td,preservative free (7 yrs and older). Due on due Goal HEPATITIS C AB TEST. Due on due Goal Tetanus/diphth T ox-adult-im/je. Due on due Goal HIV-1 AG W/HIV-1 & HIV-2 AB. Due on due Goal Tetanus/diphth T ox-adult-im/je. Due on due Goal HIV-1 AG W/HIV-1 & HIV-2 AB. Due on due Goal Annual PE. Due on 8 due Goal Chlamydia/GC Amp lification. Due on due Goal Td,preservative free (7 yrs and older). Due on due Goal Influenza virus vaccine, quadrivalent, split virus, preservative free, when administered to individu. Due on due Goal Chest CT WITHOUT Contrast. Due on due Goal HEPATITIS C AB TEST. Due on due Goal Influenza virus vaccine, quadrivalent, split virus, preservative free, when administered to individu. Due on due Goal Tetanus/diphth T ox-adult-im/je. Due on due Goal Chest CT WITHOUT Contrast. Due on due Goal Chlamydia/GC Amp lification. Due on due Goal Td,preservative free (7 yrs and older). Due on due Goal HIV-1 AG W/HIV-1 & HIV-2 AB. Due on due Goal Annual PE. Due on 8 due Goal HEPATITIS C AB TEST. Due on due Goal Chlamydia/GC Amp lification. Due on due Goal Td,preservative free (7 yrs and older). Due on due Goal Annual PE. Due on [address] WITHOUT Contrast. Due on due Goal HIV-1 AG W/HIV-1 & HIV-2 AB. Due on due Goal Influenza virus vaccine, quadrivalent, split virus, preservative free, when administered to individu. Due on due Goal HEPATITIS C AB TEST. Due on due Goal Tetanus/diphth T ox-adult-im/je. Due on due Goal HIV-1 AG W/HIV-1 & HIV-2 AB. Due on due Goal Td,preservative free (7 yrs and older). Due on due Goal Influenza virus vaccine, quadrivalent, split virus, preservative free, when administered to individu. Due on due Goal Chlamydia/GC Amp lification. Due on due Goal Annual PE. Due on [address] WITHOUT Contrast. Due on due Goal Tetanus/diphth T ox-adult-im/je. Due on due Goal HEPATITIS C AB TEST. Due on due Goal Td,preservative free (7 yrs and older). Due on due Goal Chest CT WITHOUT Contrast. Due on due Goal Chlamydia/GC Amp lification. Due on due Goal HIV-1 AG W/HIV-1 & HIV-2 AB. Due on due Goal Annual PE. Due on 7 due Goal HEPATITIS C AB TEST. Due on due Goal Influenza virus vaccine, quadrivalent, split virus, preservative free, when administered to individu. Due on due Goal Tetanus/diphth T ox-adult-im/je. Due on due Goal HIV-1 AG W/HIV-1 & HIV-2 AB. Due on due Goal HEPATITIS C AB TEST. Due on due Goal Chlamydia/GC Amp lification. Due on due Goal Chest CT WITHOUT Contrast. Due on due Goal Influenza virus vaccine, quadrivalent, split virus, preservative free, when administered to individu. Due on due Goal Annual PE. Due on due Goal Tetanus/diphth T ox-adult-im/je. Due on due Goal Annual PE. Due on due Goal Chlamydia/GC Amp lification. Due on due Goal Influenza virus vaccine, quadrivalent, split virus, preservative free, when administered to individu. Due on due Goal Tetanus/diphth T ox-adult-im/je. Due on due Goal HEPATITIS C AB TEST. Due on due Goal HIV-1 AG W/HIV-1 & HIV-2 AB. Due on due Goal Chest CT WITHOUT Contrast. Due on due Goal Glu; Luis. Due on 6 due Goal HEPATITIS C AB TEST. Due on due Goal Chest CT WITHOUT Contrast. Due on due Goal HIV-1 AG W/HIV-1 & HIV-2 AB. Due on due Goal Annual PE. Due on 6 due Goal Influenza virus vaccine, quadrivalent, split virus, preservative free, when administered to individu. Due on due Goal Chlamydia/GC Amp lification. Due on due Goal Tetanus/diphth T ox-adult-im/je. Due on due Goal Tetanus/diphth T ox-adult-im/je. Due on due Goal HEPATITIS C AB TEST. Due on due Goal Chest CT WITHOUT Contrast. Due on due Goal HIV-1 AG W/HIV-1 & HIV-2 AB. Due on due Goal Chlamydia/GC Amp lification. Due on due Goal Glu; Luis. Due on 6 due Goal Influenza virus vaccine, quadrivalent, split virus, preservative free, when administered to individu. Due on due Goal Annual PE. Due on due Referral Ordered: Referrals: Endocrinology, Diabetes and Metabolism. Evaluate and treat ordered Referral Referred To: [facility] [address] [place] [address], [phone] Ordered: Referrals: Orthopedic Surgery. [facility]. Evaluate and treat ordered Referral Ordered: Referrals: Diagnostic Radiology Appointment date/timeframe: 02/27/2018 ordered Future Order: Lab Order Lipid pa guzman, fasting (100), Sent on: Sent Future Order: Lab Order AST(SGOT) (1030), Sent on: Sent Future Order: Lab Order ALT (1020), Sent on: Sent Future Order: Lab Order Calcium (1070), S ent on: Sent Future Order: Lab Order Albumin (1000), S ent on: Sent Future Order: Lab Order PSA Screen (3775) , Sent on: Sent Future Order: Lab Order Hemoglob in A1C (2500), Sent on: Sent History Of Present Illness Encounter Date Complaint History Of Prese nt Illness diabetes Risk factors inc lude: obesity and over age [age] years old. Comorbidity: Hypertension. Associated symptoms include: increased fatigue. Pertinent negatives include blurred vision, chest pain, dyspnea and Dizziness. He finds there are no barriers to taking medication The patient understands medication. Additional information: Recent a1c: 04/22/18 (8.1).. hypertension Comorbid conditi ons include diabetes mellitus. Risk factors include family history HTN, gout or CAD, male gender and obesity. Pertinent negatives include chest pain, dyspnea, headache, nausea and vomiting. He does not have barriers to taking medication. The patient understands medication. Additional information: Pt goldberg not monitor BP at home. hyperlipidemia Risk factors inc lude age over 50. The patient is adhering to medication for their hyperlipidemia. Associated symptoms include increased fatigue. Pertinent negatives include chest pain, dyspnea, nausea and vomiting. Additional information: recent labs: 04/22/18. Pt is not fasting for labs. Follow Up of hyperlipidemia Risk factors include age over 50. Pertinent negatives include chest pain. Follow Up of hypertension Comorb id conditions include diabetes mellitus. Risk factors include family history HTN, gout or CAD, male gender and obesity. Pertinent negatives include chest pain, fatigue and headache. He does not have barriers to taking medication. The patient understands medication. Follow Up of diabetes Risk facto rs include: obesity and over age [age] years old. He Has been managed with oral medications. Comorbidity: Hypertension. Pertinent negatives include chest pain. He finds there are no barriers to taking medication The patient understands medication. Additional information: labs: 01/21/18. A1C= 8.8%. shoulder pain It occurs occasi onally and is stable. Location: shoulder. There is no radiation. The pain is aching. Context: there is no injury. The pain is aggravated by lifting and movement. Additional information: going to PT. wants to discuss surgery. Pain improving but not having any strength or ROM despite PT. Follow Up of hypertension Comorb id conditions include diabetes mellitus. It is currently improving. Risk factors include family history HTN, gout or CAD, male gender and obesity. Pertinent negatives include chest pain, dyspnea, fatigue, irregular heartbeat/palpitations and visual disturbances. He does not have barriers to taking medication. The patient has appropriate response to medication. The patient understands medication. Follow Up of diabetes Risk facto rs include: obesity and over age [age] years old. He Has been managed with oral medications. Comorbidity: Hypertension. The patient understands medication. Additional information: labs drawn 07/17/17. Has lost weight. need refills for lisinopril and metformin.. Flu vaccine Flu vaccine:Pt p resents for influenza vaccine. Pt is feeling well today, denies fevers.Pt denies allergies to eggs, neomycin, latex, or gelatin.VIS sheet given to patient, questions answered and consent obtained for vaccination.Flu vaccine given without incident. Pt tolerated well.Discussed sx of reaction/ when to notify provider.NM diabetes Risk factors inc lude: obesity and over age [age] years old. He Has been managed with oral medications. Comorbidity: Hypertension. hypertension Comorbid conditi ons include diabetes mellitus. Risk factors include family history HTN, gout or CAD, male gender and obesity. Pertinent negatives include chest pain, dyspnea, irregular heartbeat/palpitations, visual disturbances and vomiting. He does not have barriers to taking medication. The patient has appropriate response to medication. The patient understands medication. diabetes The problem is s table. Risk factors include: obesity and over age [age] years old. Patient is compliant with using medication, and follow-up. He Has been managed with oral medications. Comorbidity: Hypertension. Associated symptoms include: weight loss. Pertinent negatives include blurred vision, chest pain, dyspnea, foot ulcers, hypoglycemic episodes, increased fatigue and polydipsia. He finds there are no barriers to taking medication The patient understands medication. hypertension Comorbid conditi ons include diabetes mellitus. Risk factors include family history HTN, gout or CAD, male gender and obesity. The hypertension is exacerbated by nothing. Pertinent negatives include chest pain and dyspnea. He does not have barriers to taking medication. The patient has appropriate response to medication. The patient understands medication. shoulder pain Location: bilate ral shoulder. The pain is aching and dull. Context: there is no injury. The pain is aggravated by lifting. The pain is relieved by heat and rest. There are no associated symptoms. Pertinent negatives include bruising, crepitus, decreased mobility, difficulty initiating sleep, joint instability, joint tenderness, limping, locking, nocturnal awakening, nocturnal pain, numbness, popping, spasms, swelling, tingling in the arms, tingling in the legs and weakness. Instructions Date Instruction Additional Infor mavis A summary of your treatment goals based on the recommendations of the [place] [employer] Standards of Care 2017 Your goal Hemoglobin A1C is: <7%Your goal blood pressure is : 130/80 (140/90)Your total cholesterol goal is < 200 and LDL cholesterol goal is : <100 (or <70 ) Your weight: Your goal is 180Exercise: You are physically active on a daily baisis. Continue this through the winterFunctional lifestyle goal: Eat healthier foods at nightBarriers addressed: Busy lifestyle with work. Related to Type 2 diabetes mellitus w/o complication A summary of your treatment goals based on the recommendations of the [place] [employer] Standards of Care 2017 Your goal Hemoglobin A1C is: < 8%Your goal blood pressure is : 130/80 (140/90) is at goalYour total cholesterol goal is < 200 and LDL cholesterol goal is : <100 (or <70 ) Your weight: Continue to eat heart healthy dietExercise: difficult with current work life. Make effort as possible. Related to Type 2 diabetes mellitus w/o complication Assessments Type Assessment Date No Information
--- NOTE | 2025-04-09 10:05 | MHC.PC.OV ---
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 Accompanied by: Self / Same As Patient Allergies acetaminophen (ACETAMINOPHEN) Allergy (Intermediate, Verified 04/12/25 14:07) RASH Medication List - Last Reconciled 04/12/25 by Edi Salazar MD amlodipine 5 mg PO DAILY 90 days blood pressure test kit-large As directed; for BP checks daily fluticasone propionate 50 mcg/actuation 2 sprays intranasal DAILY ibuprofen 800 mg PO TID 30 days nicotine 1 patch transdermal Q24H 28 days nicotine 1 patch transdermal DAILY 7 days nicotine 1 patch transdermal DAILY 7 days tamsulosin 0.4 mg PO BEDTIME 30 days Ventolin HFA 90 mcg/actuation (albuterol sulfate) 2 puffs inhalation Q6H PRN 30 days NS Tobacco use date assessed: 04/09/25 Fall risk assessment: No Falls in past year Last assessed Fall Risk: 04/09/25 Dental Screening Dental Screen Date: 04/09/25 Did you have a dental visit in the last 12 months?: No Did you have a dental problem in the last 6 months where you did not have access to dental care?: No Was dental information given to patient?: Patient has dentist HPI Elevated blood pressure HPI Details Patient comes in today for his follow-up visit States that he is still experiencing recurrent headaches lately and that his blood pressure is still running high despite his current medication He was started back on Amlodipine 5 mg daily at his last visit but states that he just started taking this about 3 to 4 weeks ago and that he has been taking his medication every day for the past 3 weeks He denies any dizziness Denies any chest pains, no increased shortness of breath No nausea/vomiting, no abdominal pain No change in bowel habits noted He has not yet gotten his previously ordered labs and chest x-rays done yet - states that he can go and get them done as soon as he is finished with his offiice visit today [facility] Medical History Smoker Benign essential hypertension Overweight (BMI 25.0-29.9) Blurred vision, bilateral Surgical History History of sinus surgery H/O repair of right rotator cuff (~2011) H/O bilateral inguinal hernia repair H/O arthroscopy of right knee (~1979) Family History Mother COPD (chronic obstructive pulmonary disease) Father Lung cancer Social History Housing: House Alcohol intake: never Cigarette Packs Per Day: 1 e-Cigarette/Vaping Use: Never Used service: No Current occupational status: unemployed Current occupational exposures/hazards: No Cognitive needs: No Hearing needs: No Vision needs: No Questionnaire PHQ-9 Over the last 2 weeks, how often have you been bothered by any of the following problems? 1. Little interest or pleasure in doing things: not at all 2. Feeling down, depressed, or hopeless: not at all 3. Trouble falling or staying asleep, or sleeping too much: not at all 4. Feeling tired or having little energy: not at all 5. Poor appetite or overeating: not at all 6. Feeling bad about yourself - or that you are a failure or have let yourself or your family down: not at all 7. Trouble concentrating on things, such as reading the newspaper or watching television: not at all 8. Moving or speaking so slowly that other people could have noticed. Or the opposite - being so fidgety or restless that you have been moving around a lot more than usual: not at all 9. Thoughts that you would be better off or of hurting yourself in some way: not at all Total score: 0 Depression Screening Interpretation: Negative Depression Screening Done: Yes 41139 - PHQ-9 Billing: Yes Source: Developed by Drs. Reza Pearl, Tanya Plasencia, Shai Delaney and colleagues, with an educational jeanette from [employer]. Thrive Questionnaire Date Thrive assessed: 04/09/25 I am a: Patient What is your living situation today?: I choose not to answer this question Within the past 12 months, did the food you bought not last and you didn't have the money to get more?: I choose not to answer this question Within the past 12 months, did you worry whether your food would run out before you got money to buy more?: I choose not to answer this question Do you have trouble paying for medicines?: I choose not to answer this question Do you have trouble getting transportation to medical appointments?: I choose not to answer this question Do you have trouble paying your heating and electricity bill?: I choose not to answer this question Do you have trouble taking care of your child, family member or friend?: I choose not to answer this question Do you have trouble with day-to-day activities such as bathing, preparing meals, shopping, managing finances, etc.?: I choose not to answer this question Are you currently unemployed and looking for a job?: I choose not to answer this question Are you interested in more education?: I choose not to answer this question Please select the resources that you would like help with: None Currently or been in a relationship where the following occur: I choose not to answer THRIVE Score: 0 AUDIT C Alcohol Use Questionnaire (AUDIT-C) 1. How often do you have a drink containing alcohol?: Never 3. How often do you have six or more drinks on one occasion?: Never Total Score: 0 Score Reviewed/Action Taken: Yes CASSIE-7 AMB Questionnaire CASSIE-7 Date CASSIE - 7 assessed: 04/09/25 Feeling nervous, anxious, or on edge: 0 = Not at all Not being able to stop or control worryin = Not at all Worrying too much about different things: 0 = Not at all Trouble relaxin = Not at all Being so restless that it is hard to sit still: 0 = Not at all Becoming easily annoyed or irritable: 0 = Not at all Feeling afraid as if something awful might happen: 0 = Not at all Total CASSIE-7 score (0-4 normal; 5-9 mild; 10-14 moderate; 15-21 severe): 0 Source: Developed by Drs. Reza Pearl, Tanya Plasencia, Shai Delaney and colleagues, with an educational jeanette from [employer]. CASSIE-7 Assessment Billing CASSIE-7 Assessment Tool: CASSIE-7 Assessment 44143 Review of Systems Const Denies chills, Denies fatigue, Denies fever(s) and Reports headache(s) (on and off) Eyes Denies blurry vision ENT Denies dysphagia, Denies dizziness, Denies otalgia, Reports headache(s) (on and off), Denies neck pain, Denies odynophagia and Denies sore throat Card Denies chest pain, Denies irregular heart rhythm, Denies palpitations and Reports dyspnea on exertion (mild) Resp Denies chest congestion, Reports cough (on and off), Denies pain with cough and Reports dyspnea on exertion (mild) GI Denies abdominal pain, Denies constipation, Denies dysphagia, Denies heartburn, Denies diarrhea, Denies nausea, Denies odynophagia and Denies vomiting Denies difficulty urinating, Denies dysuria and Denies urinary frequency Musc Denies back pain, Denies arthralgias and Denies neck pain Skin/Breast Denies rash Neuro Denies dizziness, Reports headache(s) (on and off) and Denies paresthesias Endo Denies fatigue and Denies palpitations Physical exam (Primary Care) Vital Signs: Last Vital Signs Pulse 69 04/09/25 10:06 BP 160/80 H 04/09/25 10:06 Pulse Ox 94 04/09/25 10:06 Oxygen Delivery Method Room Air 04/09/25 10:06 BMI result Body Mass Index 27.4 Tobacco/Smoking Status: Tobacco use Status Tobacco use date assessed 04/09/25 04/09/25 10:09 e-Cigarette/Vaping Use Never Used 04/09/25 10:09 PHQ-9: PHQ-9 Score PHQ-9: Total score 0 04/09/25 10:36 Depression Screening Interpretation: Negative Thrive Assessment: Date of Thrive Assessment Date Thrive assessed 04/09/25 04/09/25 10:09 Currently or been in a relationship where the following occur: I choose not to answer Const General: no acute distress and alert HENMT Ears: TM's normal bilaterally and EAC's normal Throat: Yes posterior oropharynx normal and Yes tonsils normal (no TP congestion) Neck Neck: Yes no lymphadenopathy and Yes supple Thyroid: Thyroid normal Resp Auscultation: no rales, rhonchi (scattered) throughout, no wheezes and diminished lung sounds bilateral Cardio Rate: regular rate Rhythm: regular rhythm Heart sounds: no murmurs GI Palpation (GI): Soft to palpation and nontender Auscultation: normal bowel sounds General: Yes no CVA tenderness Back/Spine/Pelvis Back: no CVA tenderness Thoracic/Lumbar Spine: thoracic and lumbar spine normal to inspection Extrem General: Yes no clubbing, cyanosis or edema Coding Level of Care Code Est Pt Level 3 (41908) Diagnoses Benign essential hypertension I10 Benign prostatic hyperplasia with urinary hesitancy N40.1; R39.11 Lower urinary tract symptom detail: urinary hesitancy Smoker F17.200 Additional Codes CASSIE-7 Assessment Billing - CASSIE-7 Assessment Tool: CASSIE-7 Assessment 14039 ([id number]) PHQ-9 - 81666 - PHQ-9 Billing: Yes ([id number]) Assessment & Plan Assessment & Plan (1) Benign essential hypertension: Code(s): I10 - Essential (primary) hypertension Category: Medical Plan: Reinforced low sodium diet - goal is systolic BP of at least 120 mm or less Will go ahead and increase his Amlodipine to 10 mg QD today Patient is instructed to get his previously ordered labs done RYLIE Will also have him follow-up with our nurse navigator hours for blood pressure check in a few weeks (2) Benign prostatic hyperplasia with lower urinary tract symptoms: Code(s): N40.1 - Benign prostatic hyperplasia with lower urinary tract symptoms Category: Medical Qualifiers: Lower urinary tract symptom detail: urinary hesitancy Qualified Code(s): N40.1 - Benign prostatic hyperplasia with lower urinary tract symptoms; R39.11 - Hesitancy of micturition Plan: Continue Tamsulosin 0.4 mg Q HS Follow up with urology as scheduled (3) Smoker: Code(s): F17.200 - Nicotine dependence, unspecified, uncomplicated Category: Social Hx Plan: Patient is again counseled on complete smoking cessation Per request, we started him on Nicotine patches at his last visit to help him quit smoking and patient states that he is still currently working on this He was also instructed to get his previously ordered chest x-rays done RYLIE Plan Follow up in 2 months Medications: Changed From amlodipine 5 mg PO DAILY 90 days 90 tabs 1RF I10 - Essential (primary) hypertension To amlodipine 10 mg PO DAILY 90 tabs 1RF 90 days I10 - Essential (primary) hypertension
[2025-04-09 10:06] VITALS: BP 160/80; PULSE 69; O2SAT 94; BMI 27.4
== END 2025-04-09 10:39 | disposition home or self-care (01) ==
LOC: HO.HMCH 10:03
PROVIDERS: PCP Internal Medicine; Visit Provider Internal Medicine
DX: I10 Essential (primary) hypertension (principal); N40.1 Benign prostatic hyperplasia with lower urinary tract symptoms; R39.11 Hesitancy of micturition; F17.200 Nicotine dependence, unspecified, uncomplicated

== ENCOUNTER 2025-04-09 10:02 | Outpatient (REF) | payer OTHER, SELFPAY ==
--- NOTE | ~2025-04-09 | XR_ITS ---
CLINICAL HISTORY: R05.9 - Cough, unspecified 2 view chest x-ray Comparison: None provided Findings: No consolidation or effusion. Heart size is normal. No acute fracture. IMPRESSION: 1. No acute findings. This document has been electronically signed by: Erlin Dickerson MD on 04/10/2025 08:57:05
[2025-04-09 11:17] LABS: MANUAL DIFF FLAG NO
--- OUTSIDE RECORDS SUMMARY | 2025-04-09 11:41 | XMS_ITS | Clinical Summary ---
Author Organization [employer] Address [address] [place] [address] Care Team Providers Care Orthopedics Nurse Name Role Phone Unavailable Primary Care Provider Unavailabl e Allergies Active Allergy Reactions Criticality Noted Date Comments Acetaminophen Rash Low 06/26/2017 Medications Ventolin HFA 108 (90 Base) MCG/ACT inhaler INHALE 2 PUFFS BY MOUTH EVERY 6 HOURS NEEDED FOR SHORTNESS OF BREATH OR WHEEZE 5 Active amLODIPine (Norvasc) 5 MG tablet Take 1 tablet by mouth Once per day. 5 Active amoxicillin (Amoxil) 500 MG capsule take 1 capsule (500MG) by oral route every 8 hours until done 1 Active ibuprofen 800 MG tablet TAKE 1 TABLET ORALLY 3 TIMES A DAY FOR 30 DAYS TAKE WITH FOOD 5 Active nicotine (Nicoderm, Step 2) 14 MG/24HR patch APPLY 1 PATCH TRANSDERMALLY DAILY FOR 7 DAYS 5 Active nicotine (Nicoderm, Step 1) 21 MG/24HR patch APPLY 1 PATCH TRANSDERMALLY DAILY FOR 7 DAYS 5 Active nicotine (Nicoderm, Step 3) 7 MG/24HR patch APPLY 1 PATCH TRANSDERMALLY EVERY 24 HOURS FOR 28 DAYS 5 Active permethrin (Elimite) 5 % cream PLEASE SEE ATTACHED FOR DETAILED DIRECTIONS 5 Active Active Problems Problem Noted Date Diagnosed Date Known health problems: none 01/28/2025 Encounters Date Type Department Care Team Description 03/17/2025 9:00 AM EDT Office Visit [facility] ADULT DENTAL [address] [place], [place] [phone] Onofre Balderrama DDS 01/28/2025 10:00 AM EDT Office Visit [facility] ADULT DENTAL [address] [place], [place] [phone] Fernando Pretty DMD Known health problems: none (Primary Dx) from Last 3 Months Social History Tobacco Use Types Packs/Day Years Used Date Smoking Tobacco: Every Day Cigarettes Smokeless Tobacco: Current Tobacco Cessation:Ready to Q uit: Not Asked; Counseling Given: Not Answered Alcohol Use Standard Drinks/Week Comments Not Currently 0 (1 standard drink = 0.6 oz pur e alcohol) Sex and Gender Information Value Date Recorded Sex Assigned at Male 07/31/2022 10:24 AM EDT Legal Sex Male 10:24 AM EDT Gender Identity Male 01/05/2025 10:50 AM EDT Sexual Orientation Straight 01/05/2025 10 :50 AM EDT Last Filed Vital Signs Vital Sign Reading Time Taken Comments Blood Pressure 200/100 03/17/2025 8:55 AM EDT Pulse 76 03/17/2025 8:55 AM EDT Temperature - - Respiratory Rate - - Oxygen Saturation - - Inhaled Oxygen Concentration - - Weight - - Height - - Body Mass Index - - Plan of Treatment Upcoming Encounters Date Type Department Care Team (Late st Contact Info) Description 05/05/2025 9:00 AM EDT Office Visit [facility] ADULT DENTAL [address] [place] [address] Onofre Balderrama DDS [address] [place] [address] Health Maintenance Due Date Last Done Comments CT Colonography 1960 Colonoscopy 1960 Colorectal Cancer Screening 1960 Dental Prophylaxis 1960 Depression Screening 1960 FIT DNA/Cologuard 1960 FIT 1960 FOBT 1960 HIV Screening 1960 Lipid Panel 1960 SDOH Screening 1960 Sigmoidoscopy 1960 Disability Screening 1960 Alcohol/Substance Use Screening 1972 Hepatitis C Screening 1978 Pneumococcal Vaccine: 50+ Years (1 of 2 - PCV) 1979 Zoster Vaccines (1 of 2) 2010 Dental X-Ray: Bitewings 06/27/2018 06/26/2017 DTaP/Tdap/Td Vaccines (1 - Tdap) 03/21/2019 03/20/2019 COVID-19 Vaccine (1 - 2023-2 5 season) 2024 Influenza Vaccine (#1) 2025 Dental Oral Exam 07/31/2025 01/28/2025, 06/26/2017 Tobacco Screening 03/17/2026 03/17/2025 Dental X-Ray: Full Mouth 01/30/2028 025, 06/26/2017 RSV Patients and Patients Aged 60 years or older (1 - [...] patient's age to complete this topic Meningococcal B Vaccine Aged Out No l onger eligible based on patient's age to complete this topic Meningococcal Vaccine Aged Out No marques ellis eligible based on patient's age to complete this topic RSV under 20 months Aged Out No longe r eligible based on patient's age to complete this topic Rotavirus Vaccines Aged Out No longer eligible based on patient's age to complete this topic Procedures Procedure Name Priority Date/Time Associated Diagnosis Comments NO CHARGE VISIT Routine 03/17/2025 9:00 AM EDT CASE PRESENTATION, DETAILED AND EXTENSIVE TREATMENT PLANNING Routine 01/28/2025 10:00 AM EDT PANORAMIC RADIOGRAPHIC IMAGE Routine 01/28/2025 10:00 AM EDT PERIODIC ORAL EVALUATION - ESTABLISHED PATIENT Routine 01/28/2025 10:00 AM EDT INTRAORAL - COMPLETE SERIES OF RADIOGRAPHIC IMAGES Routine 06/26/2017 12:00 AM EDT from Last 3 Months or Most Recently Relevant to Health Maintenance Insurance [facility] MEDICAID STAND ADULT
[2025-04-09 12:00] LABS: Hematocrit 43.8 % (42.0-52.0); Hemoglobin 15.4 g/dl (14.0-18.0); Imm Gran Abs Auto 0.02 X10*3/uL (0.00-0.03); Imm Gran Pct Auto 0.4 % (0.0-0.4); Lymphocytes Absolute Auto 1.6 X10*3/uL (1.2-4.9); Mean Corpuscular HGB Conc 35.2 g/dl (31.0-36.0); Mean Corpuscular Hemoglobin 31.6 pg (27.0-33.0); Mean Corpuscular Volume 89.8 fL (80.0-98.0); NRBC Abs Auto 0.000 X10*3/uL (0.0-0.012); NRBC Pct Auto 0.0 /100WBC (0.0-0.2); Platelet Count 198 X10*3/uL (160-400); Red Blood Count 4.88 X10*6/uL (4.60-5.80); White Blood Count 5.7 X10*3/uL (4.8-10.8)
[2025-04-09 12:39] LABS: Alanine Aminotransferase 201 U/L (0-40); Albumin Level 4.3 g/dL (3.5-5.0); Alkaline Phosphatase 151 U/L (39-117); Anion Gap 11 (12-20); Aspartate Amino Transferase 211 U/L (5-37); Blood Urea Nitrogen 26 mg/dL (9-16); Calcium 9.9 mg/dL (8.4-10.2); Carbon Dioxide 29 mmol/L (22-29); Chloride 104 mmol/L (96-108); Cholesterol 176 mg/dL (<200); Estimated Glomerular Filt Rate > 60; HDL Cholesterol 34 mg/dL (>40); Potassium 4.3 mmol/L (3.3-5.1); Sodium 140 mmol/L (135-145); Total Protein 8.0 g/dL (6.5-8.0); Triglycerides 137 mg/dL (<150)
[2025-04-09 12:41] LABS: Folate 14.5 ng/mL (> or = 4.0); Prostate Specific Antigen 0.93 ng/mL (<0.05-4.0); Vitamin B12 524 pg/mL (200-900)
== END 2025-04-09 10:03 | disposition home or self-care (01) ==
LOC: HO.LAB 10:02
PROVIDERS: PCP Internal Medicine; Visit Provider Internal Medicine
DX: Z00.00 Encounter for general adult medical examination without abnormal findings (principal); E53.8 Deficiency of other specified B group vitamins; D64.9 Anemia, unspecified; E78.00 Pure hypercholesterolemia, unspecified; E55.9 Vitamin D deficiency, unspecified; R03.0 Elevated blood-pressure reading, without diagnosis of hypertension; I10 Essential (primary) hypertension; N40.1 Benign prostatic hyperplasia with lower urinary tract symptoms; R39.11 Hesitancy of micturition; F17.210 Nicotine dependence, cigarettes, uncomplicated; R05.9 Cough, unspecified; Z79.899 Other long term (current) drug therapy
CPT/HCPCS: 36415; 71046; 80053; 80061; 82306; 82607; 82746; 84153; 84443; 85025; 96127; 99212

== ENCOUNTER → 2025-04-09 11:47 | Outpatient (BNV) | payer OTHER, SELFPAY | PROVIDERS: PCP Internal Medicine; Visit Provider Specialist | DX: R05.9 Cough, unspecified (principal) | CPT/HCPCS: 71046 ==

== ENCOUNTER → 2025-04-24 11:24 | Outpatient (BNVA) | payer OTHER, SELFPAY | PROVIDERS: PCP Internal Medicine | DX: Z01.30 Encounter for examination of blood pressure without abnormal findings (principal) | CPT/HCPCS: 99211 ==

== ENCOUNTER 2025-06-03 10:04 | Outpatient (AMB) | payer OTHER, SELFPAY ==
--- OUTSIDE RECORDS SUMMARY | 2021-12-09 10:29 | XMS_ITS | Continuity of Care Document ---
Author Organization [facility] Address [address] [place] [address] Phone Care Team Providers Care Radar Technician Name Role Phone Unavailable Unavailable Unavailable Allergies, [...] Location Reason(s) For Visit Diagnoses Date Provider [address], [id number], [place] tel:[phone] [facility] No Information No Information Community [address], [id number], [place] tel:[phone] [facility] No Information 0 No Information [address], [id number], [place] tel:[phone] [facility] No Information 0 No Information [address], [id number], [place] tel:[phone] [facility] No Information 9 No Information [address], [id number], [place] tel:[phone] [facility] No Information 8 No Information [address], [id number], [place] tel:[phone] [facility] diabetes (chief complaint)hyper tension (chief complaint)hyper lipidemia (chief complaint) Type 2 diabetes mellitus without complication, without long-term current use of insulinPure hypercholesterolemia 8 No Information [address], [id number], [place] tel:[phone] [facility] Pure hypercholesterolemia , unspecified 8 No Information [address], [id number], [place] tel:[phone] [facility] Type 2 diabetes mellitus with hyperglycemia, with long-term current use of insulinLong term (current) use of insulinPure hypercholesterolemia 8 No Information [address], [id number], [place] tel:[phone] [facility] Complete tear of right rotator cuff 8 No Information [address], [id number], [place] tel:[phone] [facility] Right shoulder pain, unspecified chronicity [address] , [place], [id number], [place] tel:[phone] [facility] Follow Up of hypertension (chief complaint)Follo w Up of hyperlipidemia (chief complaint)Follo w Up of diabetes (chief complaint)shoul kiki pain (chief complaint) Right shoulder pain, unspecified chronicityEssential (primary) hypertensionUncontro lled type 2 diabetes mellitus without complication, with long-term current use of insulinLong term (current) use of insulinPure hypercholesterolemia 8 No Information [address], [id number], [place] tel:[phone] [facility] Essential (primary) hypertensionType 2 diabetes mellitus with hyperglycemia, with long-term current use of insulinLong term (current) use of insulin 8 No Information [address], [id number], [place] tel:[phone] [facility] Type 2 diabetes mellitus with hyperglycemiaEssenti al (primary) hypertensionType 1 diabetes mellitus without complications 8 No Information [address], [id number], [place] tel:[phone] [facility] No Information 8 No Information [address], [id number], [place] tel:[phone] [facility] Follow Up of diabetes (chief complaint)Follo w Up of hypertension (chief complaint)Flu vaccine (chief complaint) Essential (primary) hypertensionHyperlip idemia, unspecifiedType 2 diabetes mellitus w/o complication 7 No Information [address], [id number], [place] tel:[phone] [facility] Essential (primary) hypertensionHyperlip idemia, unspecifiedType 2 diabetes mellitus w/o complicationAbnormal weight loss 7 No Information [address], [id number], [place] tel:[phone] [facility] Essential (primary) hypertensionHyperlip idemia, unspecifiedType 2 diabetes mellitus w/o complication 7 No Information [address], [id number], [place] tel:[phone] [facility] diabetes (chief complaint)hyper tension (chief complaint) Type 2 diabetes mellitus w/o complicationHyperlip idemia, unspecifiedEssential (primary) hypertension 7 No Information [address], [id number], [place] tel:[phone] [facility] Hyperlipidemia, unspecifiedHypertens ionType 2 diabetes mellitus w/o complicationEncounte r for screening for malignant neoplasm of prostate 7 No Information [address], [id number], [place] tel:[phone] [facility] Type 2 diabetes mellitus w/o complication 7 No Information [address], [id number], [place] tel:[phone] [facility] diabetes (chief complaint)hyper tension (chief complaint)shoul kiki pain (chief complaint) Pain in left shoulderPain in right shoulderHypertension Type 2 diabetes mellitus w/o complication 6 No Information [address], [id number], [place] tel:[phone] [facility] No Information 6 No Information [address], [id number], [place] tel:[phone] [facility] No Information 6 No Information [address], [id number], [place] tel:[phone] [facility] Hyperlipidemia, unspecifiedHypertens ionType 2 diabetes mellitus w/o complication 6 No Information [address], [id number], [place] tel:[phone] No Information 6 No Information Family History [...] Insurance type Covered republican ID Authoriza tion(s) [facility] [id number] [facility] [id number] [facility] [id number] Social History Type Description Quantity Date Captured Comments Alcohol Use Details Unknown Caffeine Use Details Unknown Tobacco Use Status No Information Smoking Status No Information Sex Male Sexual Orientation Choose not to disclose Gender Identity Choose not to disclose 019 Chief Complaint And Reason For Visit No Information Plan Of Treatment Date Type Action Status Goal Hemoglobin A1C. Due on due Goal Foot exam. Due on due Goal Urine microalbumin. Due on due Goal Diabetes Screening. Due on due Goal Urinalysis. Due on due Goal CBC due Goal Electrolyte Panel. Due on due Goal Electrocardiogra m, complete (ECG). Due on due Goal Calcium; Tot due Goal Creatinine. Due on 19 due Goal Dilated eye exam. Due on Nov due Goal Dietitian. Due on 2 due Goal Zoster vaccine (1st). Due on due Goal INFLUENZA. Due on 8 due Goal BMI counseling d ocumented in Health Promotion Plan. Due on due Goal PSA. Due on due Goal Zoster vaccine (2nd). Due on due Goal Colonoscopy. Due on 022 due Goal Depression screening. Due on due Goal Annual PE. Due on [address] WITHOUT Contrast. Due on due Goal FOBT. Due on due Goal HIV-1 AG W/HIV-1 & HIV-2 AB. Due on due Goal Chlamydia/GC Amp lification. Due on due Goal HEPATITIS C AB TEST. Due on due Goal Chest CT WITHOUT Contrast. Due on due Goal Annual PE. Due on 8 due Goal Influenza virus vaccine, quadrivalent, split virus, preservative free, when administered to individu. Due on due Goal Td,preservative free (7 yrs and older). Due on due Goal HIV-1 AG W/HIV-1 & HIV-2 AB. Due on due Goal Chlamydia/GC Amp lification. Due on due Goal Tetanus/diphth T ox-adult-im/je. Due on due Goal HEPATITIS C AB TEST. Due on due Goal Zoster-Shingrix. Due on due Goal Influenza virus vaccine, quadrivalent, split virus, preservative free, when administered to individu. Due on due Goal Td,preservative free (7 [...] C AB TEST. Due on due Goal HEPATITIS C AB TEST. Due on due Goal Chlamydia/GC Amp lification. Due on due Goal Chest CT WITHOUT Contrast. Due on due Goal Annual PE. Due on 8 due Goal Td,preservative free (7 yrs and [...] Annual PE. Due on 8 due Goal HIV-1 AG W/HIV-1 & HIV-2 AB. Due on due Goal Chest CT WITHOUT Contrast. Due on due Goal Tetanus/diphth T ox-adult-im/je. Due on due Goal HEPATITIS C AB TEST. Due on due Goal Td,preservative free (7 yrs and older). Due on due Goal Annual PE. Due on 7 due Goal Tetanus/diphth T ox-adult-im/je. Due on [...] yrs and older). Due on due Goal Tetanus/diphth T ox-adult-im/je. [...] administered to individu. Due on due Goal HIV-1 AG W/HIV-1 [...] on due Goal Glu; Luis. Due on due Goal Annual PE. Due on 6 due Goal Chlamydia/GC Amp lification. Due on due Goal Glu; Luis. Due on due Goal Influenza virus vaccine, quadrivalent, split virus, preservative free, when administered to individu. Due on due Goal Chest CT WITHOUT Contrast. Due on due Goal HEPATITIS C AB TEST. Due on due Goal Tetanus/diphth T ox-adult-im/je. Due on due Goal HIV-1 AG W/HIV-1 & HIV-2 AB. Due on due Referral Ordered: Referrals: Endocrinology, Diabetes and Metabolism. Evaluate and treat ordered Referral Referred To: [facility] [address] [place] [address], [phone] Ordered: Referrals: Orthopedic Surgery. [facility]. Evaluate and treat ordered Referral Ordered: [...] Sent Future Order: Lab Order PSA Screen ([id number]) , Sent on: Sent Future Order: Lab [...] goals based on the recommendations of the [employer] Standards of Care 2017 Your [...] goals based on the recommendations of the [employer] Standards of Care 2017 Your [...]
--- OUTSIDE RECORDS SUMMARY | 2025-05-29 10:00 | XMS_ITS | Encounter Summary ---
Author Organization [employer] Address [address] [place] [address] [place] [address] Care Team Providers Care Robotics Technician Name Role Phone Unavailable Primary Care Provider Unavailabl e Reason for Visit * Reason Comments Dentures Final Impressions Encounter Details Date Type Department Care Team ( Contact Info) Description 05/29/2025 10:00 AM EDT Office Visit [facility] ADULT D[facility] [address] [place] [address] Onofre Balderrama DDS [address] [place] [address] Social History Tobacco Use Types Packs/Day Years Used Date Smoking Tobacco: Every Day Cigarettes Smokeless Tobacco: Current Alcohol Use Standard Drinks/Week Comments Not Currently 0 (1 standard drink = 0.6 oz pur e alcohol) Sex and Gender Information Value Date Recorded Sex Assigned at Male 07/31/2022 10:24 AM EDT Legal Sex Male 10:24 AM EDT Gender Identity Male 01/05/2025 10:50 AM EDT Sexual Orientation Straight 01/05/2025 10 :50 AM EDT documented as of this encounter Last Filed Vital Signs Vital Sign Reading Time Taken Comments Blood Pressure 160/82 05/29/2025 9:57 AM EDT Pulse - - Temperature - - Respiratory Rate - - Oxygen Saturation - - Inhaled Oxygen Concentration - - Weight - - Height - - Body Mass Index - - documented in this encounter Progress Notes * Onofre Balderrama DDS - 05/29/2025 10:00 AM EDT Patient presented for Final Impressions. Maxillary and mandibular custom trays used with Heavy and Medium body PVS to make final impressions. Patient to return for Bite Registration. documented in this encounter Plan of Treatment Upcoming Encounters Date Type Department Care Team ( Contact Info) Description 06/30/2025 3:30 PM EDT Office Visit [facility] ADULT D[facility] [address] [place], [place] [phone] Onofre Balderrama DDS [address] [place] [address] Scheduled Orders Name Type Priority Associated Diagnoses Orde r Schedule DENTAL LAB DENTURES AND PARTIALS Dental Routine Ordered: 025 documented as of this encounter Procedures Procedure Name Priority Date/Time Associated Diagnosis Comments DENTURE IMPRESSION Routine 05/29/2025 10:00 AM EDT documented in this encounter Visit Diagnoses Not on filedocumented in this encounter
[2025-06-03 10:10] VITALS: BP 140/82; PULSE 74; RESP 18; TEMP 36.2; O2SAT 94; BMI 27.7
--- NOTE | 2025-06-03 10:10 | MHC.PC.OV ---
Vital Signs 06/03/25 10:10 Height 5 ft 8 in Weight 182 lb BMI 27.7 BP 140/82 H Blood Pressure Location Lt brachial Position Sitting Respiration 18 Pulse 74 Pulse Source Pulse Oximeter Temp 97.1 F Temp Source Temporal Artery Scan Pulse Oximetry (%) 94 Oxygen Delivery Method Room Air Intake Visit Reasons: HTN, smoker Bet[employer] Counter Clerk Required: No Accompanied by: Self / Same As Patient Allergies acetaminophen (ACETAMINOPHEN) Allergy (Intermediate, Verified 06/03/25 10:34) RASH Medication List - Last Reconciled 06/03/25 by Edi Salazar MD amlodipine 10 mg PO DAILY 90 days blood pressure test kit-large As directed; for BP checks daily fluticasone propionate 50 mcg/actuation 2 sprays intranasal DAILY ibuprofen 800 mg PO TID 30 days nicotine 1 patch transdermal Q24H 28 days nicotine 1 patch transdermal DAILY 7 days nicotine 1 patch transdermal DAILY 7 days tamsulosin 0.4 mg PO BEDTIME 30 days Ventolin HFA 90 mcg/actuation (albuterol sulfate) 2 puffs inhalation Q6H PRN 30 days NS Tobacco use date assessed: 06/03/25 Fall risk assessment: No Falls in past year Last assessed Fall Risk: 06/03/25 Dental Screening Dental Screen Date: 06/03/25 Did you have a dental visit in the last 12 months?: Yes Did you have a dental problem in the last 6 months where you did not have access to dental care?: No Was dental information given to patient?: Patient has dentist HPI HTN, smoker HPI Details Patient comes in today for his follow up visit States that he feels okay He denies any headaches or dizziness Denies any chest pains, no increased SOB No nausea/vomiting, no abdominal pain No change in bowel habits noted He had his follow up labs done a couple of months ago - to discuss his results [facility] Medical History Smoker Benign essential hypertension Overweight (BMI 25.0-29.9) Blurred vision, bilateral Surgical History History of sinus surgery H/O repair of right rotator cuff (~2011) H/O bilateral inguinal hernia repair H/O arthroscopy of right knee (~1979) Family History Mother COPD (chronic obstructive pulmonary disease) Father Lung cancer Social History Housing: House Alcohol intake: never Cigarette Packs Per Day: 1 e-Cigarette/Vaping Use: Never Used service: No Current occupational status: unemployed Current occupational exposures/hazards: No Cognitive needs: No Hearing needs: No Vision needs: No Questionnaire PHQ-9 Over the last 2 weeks, how often have you been bothered by any of the following problems? 1. Little interest or pleasure in doing things: not at all 2. Feeling down, depressed, or hopeless: not at all 3. Trouble falling or staying asleep, or sleeping too much: not at all 4. Feeling tired or having little energy: not at all 5. Poor appetite or overeating: not at all 6. Feeling bad about yourself - or that you are a failure or have let yourself or your family down: not at all 7. Trouble concentrating on things, such as reading the newspaper or watching television: not at all 8. Moving or speaking so slowly that other people could have noticed. Or the opposite - being so fidgety or restless that you have been moving around a lot more than usual: not at all 9. Thoughts that you would be better off or of hurting yourself in some way: not at all Total score: 0 Depression Screening Interpretation: Negative Depression Screening Done: Yes 31222 - PHQ-9 Billing: Yes Source: Developed by Drs. Reza Pearl, Tanya Plasencia, Shai Delaney and colleagues, with an educational jeanette from [employer]. Thrive Questionnaire Date Thrive assessed: 05/06/25 I am a: Patient What is your living situation today?: I choose not to answer this question Within the past 12 months, did the food you bought not last and you didn't have the money to get more?: I choose not to answer this question Within the past 12 months, did you worry whether your food would run out before you got money to buy more?: I choose not to answer this question Do you have trouble paying for medicines?: I choose not to answer this question Do you have trouble getting transportation to medical appointments?: I choose not to answer this question Do you have trouble paying your heating and electricity bill?: I choose not to answer this question Do you have trouble taking care of your child, family member or friend?: I choose not to answer this question Do you have trouble with day-to-day activities such as bathing, preparing meals, shopping, managing finances, etc.?: I choose not to answer this question Are you currently unemployed and looking for a job?: I choose not to answer this question Are you interested in more education?: I choose not to answer this question Please select the resources that you would like help with: None Currently or been in a relationship where the following occur: I choose not to answer THRIVE Score: 0 AUDIT C Alcohol Use Questionnaire (AUDIT-C) 1. How often do you have a drink containing alcohol?: Never 3. How often do you have six or more drinks on one occasion?: Never Total Score: 0 Score Reviewed/Action Taken: Yes CASSIE-7 AMB Questionnaire CASSIE-7 Date CASSIE - 7 assessed: 06/03/25 Feeling nervous, anxious, or on edge: 0 = Not at all Not being able to stop or control worryin = Not at all Worrying too much about different things: 0 = Not at all Trouble relaxin = Not at all Being so restless that it is hard to sit still: 0 = Not at all Becoming easily annoyed or irritable: 0 = Not at all Feeling afraid as if something awful might happen: 0 = Not at all Total CASSIE-7 score (0-4 normal; 5-9 mild; 10-14 moderate; 15-21 severe): 0 Source: Developed by Drs. Reza Pearl, Tanya Plasencia, Shai Delaney and colleagues, with an educational jeanette from [employer]. CASSIE-7 Assessment Billing CASSIE-7 Assessment Tool: CASSIE-7 Assessment 51126 Review of Systems Const Denies chills, Denies fatigue, Denies fever(s) and Denies headache(s) ENT Denies dysphagia, Denies dizziness, Denies otalgia, Denies headache(s), Denies neck pain, Denies odynophagia and Denies sore throat Card Denies chest pain, Denies irregular heart rhythm, Denies palpitations and Denies dyspnea Resp Denies chest congestion, Denies cough, Denies dyspnea and Denies wheezing GI Denies abdominal pain, Denies constipation, Denies dysphagia, Denies heartburn, Denies diarrhea, Denies nausea, Denies odynophagia and Denies vomiting Denies difficulty urinating, Denies dysuria and Denies urinary frequency Musc Denies back pain, Denies arthralgias and Denies neck pain Skin/Breast Details: (+) dark, slightly raised scaling lesion on the left forearm Denies rash Neuro Denies dizziness, Denies headache(s) and Denies paresthesias Psych Denies difficulty concentrating Endo Denies fatigue and Denies palpitations Aller/Immun Denies wheezing Physical exam (Primary Care) Vital Signs: Last Vital Signs Temp 97.1 F 06/03/25 10:10 Pulse 74 06/03/25 10:10 Resp 18 06/03/25 10:10 BP 140/82 H 06/03/25 10:10 Pulse Ox 94 06/03/25 10:10 Oxygen Delivery Method Room Air 06/03/25 10:10 BMI result Body Mass Index 27.7 Tobacco/Smoking Status: Tobacco use Status Tobacco use date assessed 06/03/25 06/03/25 10:17 e-Cigarette/Vaping Use Never Used 06/03/25 10:17 PHQ-9: PHQ-9 Score PHQ-9: Total score 0 06/03/25 10:36 Depression Screening Interpretation: Negative Thrive Assessment: Date of Thrive Assessment Date Thrive assessed 05/06/25 06/03/25 10:17 Currently or been in a relationship where the following occur: I choose not to answer Const General: no acute distress and alert HENMT Ears: TM's normal bilaterally and EAC's normal Throat: Yes posterior oropharynx normal and Yes tonsils normal (no TP congestion) Neck Neck: Yes supple and No lymphadenopathy Thyroid: Thyroid normal Resp Auscultation: no rales, no wheezes and diminished lung sounds bilateral Cardio Rate: regular rate Rhythm: regular rhythm Heart sounds: no murmurs GI Palpation (GI): Soft to palpation and nontender Auscultation: normal bowel sounds General: Yes no CVA tenderness Back/Spine/Pelvis Back: no CVA tenderness Thoracic/Lumbar Spine: No lumbar spinal tenderness Skin Other: (+) small patch of hyperpigmented and slightly scaling lesion on the left forearm Rashes: no rashes Extrem General: Yes no clubbing, cyanosis or edema Results Reviewed Results Reviewed: Laboratory Tests 04/09/25 11:16 WBC 5.7 Hgb 15.4 Hct 43.8 Plt Count 198 Sodium 140 Potassium 4.3 Creatinine 0.97 Estimated GFR > 60 Fasting Glucose 111 H Calcium 9.9 AST 211 H ALT 201 H Alkaline Phosphatase 151 H Triglycerides 137 Cholesterol 176 LDL Cholesterol, Calc 115 H HDL Cholesterol 34 L Vitamin B12 524 25-OH Vitamin D Total 37.0 TSH 1.53 Coding Level of Care Code Est Pt Level 4 (70086) Diagnoses Elevated LFTs R79.89 Benign essential hypertension I10 Benign prostatic hyperplasia with urinary hesitancy N40.1; R39.11 Lower urinary tract symptom detail: urinary hesitancy Smoker F17.200 Additional Codes CASSIE-7 Assessment Billing - CASSIE-7 Assessment Tool: CASSIE-7 Assessment 43777 ([id number]) PHQ-9 - 31950 - PHQ-9 Billing: Yes ([id number]) Assessment & Plan Assessment & Plan (1) Elevated LFTs: Code(s): R79.89 - Other specified abnormal findings of blood chemistry Category: Medical Plan: Patient is advised that his LFTs are significantly elevated on his recent labs done a couple of months ago - (?) etiology As he has not had any labs done in years until 2 months ago (last recorded labs in his hospital records were in 1994), we have no previous numbers to compare these with and we do not know how long his liver enzymes have been elevated Patient denies drinking any alcohol for years now and states that he hardly takes any medications, especially Tylenol or Acetaminophen (he gets a rash from taking them) I will go ahead and send him for some additional labs RYLIE for further evaluation and these will include a complete hepatitis profile Will also send him for abdominal US RYLIE for further evaluation (2) Benign essential hypertension: Code(s): I10 - Essential (primary) hypertension Category: Medical Plan: Reinforced low sodium diet - goal is systolic BP of at least 120 to 130 mm or less Continue Amlodipine 10 mg QD for now (3) Benign prostatic hyperplasia with lower urinary tract symptoms: Code(s): N40.1 - Benign prostatic hyperplasia with lower urinary tract symptoms Category: Medical Qualifiers: Lower urinary tract symptom detail: urinary hesitancy Qualified Code(s): N40.1 - Benign prostatic hyperplasia with lower urinary tract symptoms; R39.11 - Hesitancy of micturition Plan: Continue Tamsulosin 0.4 mg Q HS Follow up with urology as scheduled (4) Smoker: Code(s): F17.200 - Nicotine dependence, unspecified, uncomplicated Category: Social Hx Plan: Patient is again counseled on complete smoking cessation - have advised him that it will also help his blood pressure if he can quit smoking Continue using his Nicotine patches as instructed His chest x-rays done a couple of months ago came out normal Plan Follow up in 3 months Orders: Orders Ferritin Today R7. - Other specified abnormal findings of blood chemistry Liver Fibrosis Pnl Today R7. - Other specified abnormal findings of blood chemistry Comprehensive Met. Panel Today R7. - Other specified abnormal findings of blood chemistry Erythrocyte Sedimentation Rate Today L28.2 - Other prurigo, R7.89 - Other specified abnormal findings of blood chemistry C Reactive Protein Today L28.2 - Other prurigo, R79.89 - Other specified abnormal findings of blood chemistry Hepatitis A,B,C Profile Today R7. - Other specified abnormal findings of blood chemistry Liver Panel Today R79.89 - Other specified abnormal findings of blood chemistry Gamma Glutamyl Transpeptidase Today R79.89 - Other specified abnormal findings of blood chemistry Hemoglobin A1c Today R73.01 - Impaired fasting glucose Lactate Dehydrogenase Today R79.89 - Other specified abnormal findings of blood chemistry Complete Blood Count Auto Diff Today D64.9 - Anemia, unspecified
--- OUTSIDE RECORDS SUMMARY | 2025-06-03 11:33 | XMS_ITS | Clinical Summary ---
Author Organization [employer] Address [address] [facility] [address] [place] [address] Care Team Providers Care Aviation Survival Technician Name Role Phone Unavailable Primary Care [...] SEE ATTACHED FOR DETAILED DIRECTIONS 5 Active amoxicillin-cl avulanate (Augmentin) 875-125 MG tablet Take 1 tablet by mouth 2 times daily for 7 days. 14 tablet 5 025 ibuprofen 600 MG tablet Take 1 tablet (600 mg) by mouth 3 times daily for 7 days. 21 tablet 5 025 acetaminophen (Tylenol) 500 MG tablet Take 1 tablet (500 mg) by mouth every 8 (eight) hours if needed for mild pain for up to 7 days. 21 tablet 08 025 Active Problems Problem Noted Date Diagnosed Date Known health problems: none 01/28/2025 Encounters Date Type Department Care Team Description 05/29/2025 10:00 AM EDT Office Visit [facility] ADULT [facility] [address] [place] [address] Onofre Balderrama DDS 05/19/2025 10:30 AM EDT Office Visit [facility] [address] [place] [address] Onofre Balderrama DDS 05/05/2025 9:00 AM EDT Office Visit [facility] [address] [place] [address] Onofre Balderrama DDS 03/17/2025 9:00 AM EDT Office Visit [facility] [address] [place] [address] Onofre Balderrama DDS from Last 3 Months Social History Tobacco [...] Pressure 160/82 05/29/2025 9:57 AM EDT Pulse 70 05/19/2025 10:27 AM EDT Temperature - - Respiratory Rate - - Oxygen Saturation - - Inhaled Oxygen Concentration - - Weight - - Height - - Body Mass Index - - Plan of Treatment Upcoming Encounters Date Type Department Care Team (Late st Contact Info) Description 06/30/2025 3:30 PM EDT Office Visit [facility] [address] [place] [address] Onofre Balderrama DDS [address] [place] [address] Health Maintenance Due Date Last Done Comments [...] Oral Exam 07/31/2025 01/28/2025, 06/26/2017 Tobacco Screening 05/29/2026 05/29/2025 Dental X-Ray: Full Mouth 01/30/2028 025, 06/26/2017 [...] Associated Diagnosis Comments DENTURE IMPRESSION Routine 05/29/2025 10 :00 AM EDT DENTURE IMPRESSION Routine 05/19/2025 10 :30 AM EDT RE-EVAL - POST-OP OFFICE VISIT Routine 05/19/2025 10:30 AM EDT CASE PRESENTATION, DETAILED AND EXTENSIVE TREATMENT PLANNING Routine 05/05/2025 9:00 AM EDT 29 EXTRACTION, ERUPTED TOOTH OR EXPOSED ROOT (ELEVATION/FORCEPS REMOVAL) Routine 05/05/2025 9:00 AM EDT 28 EXTRACTION, ERUPTED TOOTH OR EXPOSED ROOT (ELEVATION/FORCEPS REMOVAL) Routine 05/05/2025 9:00 AM EDT 27 EXTRACTION, ERUPTED TOOTH OR EXPOSED ROOT (ELEVATION/FORCEPS REMOVAL) Routine 05/05/2025 9:00 AM EDT 22 EXTRACTION, ERUPTED TOOTH OR EXPOSED ROOT (ELEVATION/FORCEPS REMOVAL) Routine 05/05/2025 9:00 AM EDT 21 EXTRACTION, ERUPTED TOOTH OR EXPOSED ROOT (ELEVATION/FORCEPS REMOVAL) Routine 05/05/2025 9:00 AM EDT 20 EXTRACTION, ERUPTED TOOTH OR EXPOSED ROOT (ELEVATION/FORCEPS REMOVAL) Routine 05/05/2025 9:00 AM EDT 19 EXTRACTION, ERUPTED TOOTH OR EXPOSED ROOT (ELEVATION/FORCEPS REMOVAL) Routine 05/05/2025 9:00 AM EDT 11 EXTRACTION, ERUPTED TOOTH OR EXPOSED ROOT (ELEVATION/FORCEPS REMOVAL) Routine 05/05/2025 9:00 AM EDT 7 EXTRACTION, ERUPTED TOOTH OR EXPOSED ROOT (ELEVATION/FORCEPS REMOVAL) Routine 05/05/2025 9:00 AM EDT 4 EXTRACTION, ERUPTED TOOTH OR EXPOSED ROOT (ELEVATION/FORCEPS REMOVAL) Routine 05/05/2025 9:00 AM EDT 2 EXTRACTION, ERUPTED TOOTH OR EXPOSED ROOT (ELEVATION/FORCEPS REMOVAL) Routine 05/05/2025 9:00 AM EDT NO CHARGE VISIT Routine 03/17/2025 9:00 AM EDT PANORAMIC RADIOGRAPHIC IMAGE Routine 01/28/2025 10:00 AM EDT PERIODIC ORAL EVALUATION - ESTABLISHED PATIENT Routine 01/28/2025 10:00 AM EDT INTRAORAL - COMPLETE SERIES OF RADIOGRAPHIC IMAGES Routine 06/26/2017 12:00 AM EDT from Last 3 Months or Most Recently Relevant to Health Maintenance Insurance [facility] MEDICA[facility] STAND ADULT
== END 2025-06-03 10:56 | disposition home or self-care (01) ==
LOC: HO.HMCH 10:05
PROVIDERS: PCP Internal Medicine; Visit Provider Internal Medicine
DX: R79.89 Other specified abnormal findings of blood chemistry (principal); I10 Essential (primary) hypertension; N40.1 Benign prostatic hyperplasia with lower urinary tract symptoms; R39.11 Hesitancy of micturition; F17.200 Nicotine dependence, unspecified, uncomplicated

== ENCOUNTER → 2025-06-03 10:04 | Outpatient (BNVA) | payer OTHER, SELFPAY | PROVIDERS: PCP Internal Medicine; Visit Provider Internal Medicine | DX: I10 Essential (primary) hypertension (principal); R79.89 Other specified abnormal findings of blood chemistry; N40.1 Benign prostatic hyperplasia with lower urinary tract symptoms; R39.11 Hesitancy of micturition; L28.2 Other prurigo; R73.01 Impaired fasting glucose; D64.9 Anemia, unspecified; F17.200 Nicotine dependence, unspecified, uncomplicated | CPT/HCPCS: 96127; 99212 ==

== ENCOUNTER 2025-06-17 08:11 | Outpatient (REF) | payer OTHER, SELFPAY ==
--- OUTSIDE RECORDS SUMMARY | 2021-12-09 10:29 | XMS_ITS | Continuity of Care Document ---
Author Organization [facility] Address [address] [place] [id number] Phone Care Team Providers Care Woods Superintendent Name Role Phone Unavailable Unavailable Unavailable Allergies, [...] of the day 300 MG - Active Aspir-81 81 mg tablet,delayed release take 1 tablet by oral route every day - Active Unifine Pentips 31 gauge x 5/16 needle Use as Directing Every Evening - Active Advance Directives Directive Yes / No Effective Date File Name No Information Encounters Encounter Description Practice Location Reason(s) For Visit Diagnoses Date Provider [address], [id number], [place] tel:[phone] [facility] No Information No Information Community [address], [id number], [place] tel:[phone] [facility] No Information 0 No Information [address], [id number], [place] tel:[phone] [facility] No Information 0 No Information [address], [id number], [place] tel:[phone] [facility] No Information 9 No Information [address], [id number], [place] tel:[phone] [facility] No Information 8 No Information [address], [id number], [place] tel:[phone] [facility] diabetes (chief complaint)hyper tension (chief complaint)hyper lipidemia (chief complaint) Type 2 diabetes mellitus without complication, without long-term current use of insulinPure hypercholesterolemia 8 No Information [address], [id number], [place] tel:[phone] [facility] Pure hypercholesterolemia , unspecified 8 No Information [address], [id number], [place] tel:[phone] [facility] Type 2 diabetes mellitus with hyperglycemia, with long-term current use of insulinLong term (current) use of insulinPure hypercholesterolemia 8 No Information [address], [id number], [place] tel:[phone] [facility] Complete tear of right rotator cuff 8 No Information [address], [id number], [place] tel:[phone] [facility] Right shoulder pain, unspecified chronicity 8 [address] , [place], [id number], [place] tel:[phone] [facility] Follow Up of hypertension (chief complaint)Follo w Up of hyperlipidemia (chief complaint)Follo w Up of diabetes (chief complaint)shoul kiki pain (chief complaint) Right shoulder pain, unspecified chronicityEssential (primary) hypertensionUncontro lled type 2 diabetes mellitus without complication, with long-term current use of insulinLong term (current) use of insulinPure hypercholesterolemia 8 No Information [address], [id number], [place] tel:[phone] [facility] Essential (primary) hypertensionType 2 diabetes mellitus with hyperglycemia, with long-term current use of insulinLong term (current) use of insulin 8 No Information [address], [id number], [place] tel:[phone] [facility] Type 2 diabetes mellitus with hyperglycemiaEssenti al (primary) hypertensionType 1 diabetes mellitus without complications 8 No Information [address], [id number], [place] tel:[phone] [facility] No Information 8 No Information [address], [id number], [place] tel:[phone] [facility] Follow Up of diabetes (chief complaint)Follo w Up of hypertension (chief complaint)Flu vaccine (chief complaint) Essential (primary) hypertensionHyperlip idemia, unspecifiedType 2 diabetes mellitus w/o complication 7 No Information [address], [id number], [place] tel:[phone] [facility] Essential (primary) hypertensionHyperlip idemia, unspecifiedType 2 diabetes mellitus w/o complicationAbnormal weight loss 7 No Information [address], [id number], [place] tel:[phone] [facility] Essential (primary) hypertensionHyperlip idemia, unspecifiedType 2 diabetes mellitus w/o complication 7 No Information [address], [id number], [place] tel:[phone] [facility] diabetes (chief complaint)hyper tension (chief complaint) Type 2 diabetes mellitus w/o complicationHyperlip idemia, unspecifiedEssential (primary) hypertension 7 No Information [address], [id number], [place] tel:[phone] [facility] Hyperlipidemia, unspecifiedHypertens ionType 2 diabetes mellitus w/o complicationEncounte r for screening for malignant neoplasm of prostate 7 No Information [address], [id number], [place] tel:[phone] [facility] Type 2 diabetes mellitus w/o complication 7 No Information [address], [id number], [place] tel:[phone] [facility] diabetes (chief complaint)hyper tension (chief complaint)shoul kiki pain (chief complaint) Pain in left shoulderPain in right shoulderHypertension Type 2 diabetes mellitus w/o complication 6 No Information [address], [id number], [place] tel:[phone] [facility] No Information 6 No Information [address], [id number], [place] tel:[phone] [facility] No Information 6 No Information [address], [id number], [place] tel:[phone] [facility] Hyperlipidemia, unspecifiedHypertens ionType 2 diabetes mellitus w/o complication 6 No Information [address], [id number], [place] tel:[phone] No Information 6 No Information Family History Family Member Type Diagnosis Age At Onset No Information Immunizations Vaccine Date Status Comments Influenza, injectable, trivalent, split virus, preservative free, 4 years and older, Fluvirin administered Source: New Im munization Record Influenza, injectable, trivalent, split virus, 4 years and older, Fluvirin [id number] administered Source: New Immuniza tion Record Influenza administered Note: Medent co nversion ; Source: Source Unspecified Influenza administered Note: Medent co nversion ; Source: Source Unspecified Influenza administered Note: Medent co nversion ; Source: Source Unspecified Influenza administered Note: Medent co nversion ; Source: Source Unspecified Payers Payer name Insurance type Covered republican ID Authoriza tion(s) [facility] [id number] [facility] [id number] [facility] [id number] Social History Type Description Quantity Date Captured Comments Alcohol Use Details Unknown Caffeine Use Details Unknown Tobacco Use Status No Information Smoking Status No Information Sex Male Sexual Orientation Choose not to disclose Gender Identity Choose not to disclose 019 Chief Complaint And Reason For Visit No Information Plan Of Treatment Date Type Action Status Goal Urine microalbumin. Due on due Goal Diabetes Screening. Due on due Goal Hemoglobin A1C. Due on due Goal Electrocardiogra m, complete (ECG). Due on due Goal Electrolyte Panel. Due on due Goal Zoster vaccine (). Due on due Goal Annual PE. Due on due Goal PSA. Due on due Goal HEPATITIS C AB TEST. Due on due Goal Calcium; Tot due Goal Urinalysis. Due on 22 due Goal CBC due Goal Creatinine. Due on 19 due Goal Foot exam. Due on 2 due Goal HIV-1 AG W/HIV-1 & HIV-2 AB. Due on due Goal Dietitian. Due on 2 due Goal Dilated eye exam. Due on [...] Goal Depression screening. Due on due Goal Chest CT WITHOUT Contrast. Due on due Goal Td,preservative free (7 yrs and older). Due on due Goal Chlamydia/GC Amp lification. Due on due Goal HIV-1 AG W/HIV-1 & HIV-2 AB. Due on due Goal Influenza virus vaccine, quadrivalent, split virus, preservative free, when administered to individu. Due on due Goal Annual PE. Due on 8 due Goal Tetanus/diphth T ox-adult-im/je. Due on due Goal Zoster-Shingrix. Due on due Goal HEPATITIS C AB [...] Tetanus/diphth T ox-adult-im/je. Due on due Goal Chlamydia/GC Amp lification. [...] Annual PE. Due on 8 due Goal Annual PE. Due on 8 [...] Tetanus/diphth T ox-adult-im/je. Due on due Goal Chlamydia/GC Amp lification. Due on due Goal Annual PE. Due on 8 due Goal HEPATITIS C AB TEST. Due on due Goal Td,preservative free (7 yrs and older). Due on due Goal HIV-1 AG W/HIV-1 & HIV-2 AB. Due on due Goal Td,preservative free (7 yrs and older). Due on due Goal Chlamydia/GC Amp lification. [...] Annual PE. Due on 7 due Goal Chlamydia/GC Amp lification. Due on [...] Annual PE. Due on 7 due Goal Influenza virus vaccine, quadrivalent, split virus, preservative free, when administered to individu. Due on due Goal Chest CT WITHOUT Contrast. Due on due Goal Chlamydia/GC Amp lification. Due on due Goal HEPATITIS C AB TEST. Due on due Goal HIV-1 AG W/HIV-1 & HIV-2 AB. Due on due Goal HEPATITIS C AB TEST. Due on due Goal HIV-1 AG W/HIV-1 & HIV-2 AB. Due on due Goal Tetanus/diphth T ox-adult-im/je. Due on due Goal Influenza virus vaccine, quadrivalent, split virus, preservative free, when administered to individu. Due on due Goal Chlamydia/GC Amp lification. Due on due Goal Chest CT WITHOUT Contrast. Due on due Goal Annual PE. Due on [address] WITHOUT Contrast. Due on due Goal HEPATITIS C AB TEST. Due on due Goal Glu; Luis. Due on 6 due Goal HIV-1 AG W/HIV-1 & HIV-2 [...] administered to individu. Due on due Goal Glu; Luis. Due on 6 due Goal Chlamydia/GC Amp lification. Due on due Goal Annual PE. Due on 6 due Goal HIV-1 AG W/HIV-1 & HIV-2 AB. Due on due Goal Tetanus/diphth T ox-adult-im/je. Due on due Referral Ordered: Referrals: Endocrinology, Diabetes and Metabolism. Evaluate and treat ordered Referral Referred To: [facility] [address] [place] [address], [phone] Ordered: Referrals: Orthopedic Surgery. [facility]. Evaluate and treat ordered Referral Ordered: [...] Sent Future Order: Lab Order PSA Screen (2915) , Sent on: Sent Future Order: Lab Order Hemoglob in A1C (2500), Sent on: Sent History Of Present Illness Encounter Date Complaint History Of Prese nt Illness hyperlipidemia Risk factors inc lude age over 50. The patient is adhering to medication for their hyperlipidemia. Associated symptoms include increased fatigue. Pertinent negatives include chest pain, dyspnea, nausea and vomiting. Additional information: recent labs: 04/22/18. Pt is not fasting for labs. hypertension Comorbid conditi ons include diabetes mellitus. Risk factors include family history HTN, gout or CAD, male gender and obesity. Pertinent negatives include chest pain, dyspnea, headache, nausea and vomiting. He does not have barriers to taking medication. The patient understands medication. Additional information: Pt goldberg not monitor BP at home. diabetes Risk factors inc lude: obesity and over age [age] years old. Comorbidity: Hypertension. Associated symptoms include: increased fatigue. Pertinent negatives include blurred vision, chest pain, dyspnea and Dizziness. He finds there are no barriers to taking medication The patient understands medication. Additional information: Recent a1c: 04/22/18 (8.1).. shoulder pain It occurs occasi onally and is stable. Location: shoulder. There is no radiation. The pain is aching. Context: there is no injury. The pain is aggravated by lifting and movement. Additional information: going to PT. wants to discuss surgery. Pain improving but not having any strength or ROM despite PT. Follow Up of diabetes Risk facto rs include: obesity and over age [age] years old. He Has been managed with oral medications. Comorbidity: Hypertension. Pertinent negatives include chest pain. He finds there are no barriers to taking medication The patient understands medication. Additional information: labs: 01/21/18. A1C= 8.8%. Follow Up of hypertension Comorb id conditions include diabetes mellitus. Risk factors include family history HTN, gout or CAD, male gender and obesity. Pertinent negatives include chest pain, fatigue and headache. He does not have barriers to taking medication. The patient understands medication. Follow Up of hyperlipidemia Risk factors include age over 50. Pertinent negatives include chest pain. Flu vaccine Flu vaccine:Pt p resents for influenza vaccine. Pt is feeling well today, denies fevers.Pt denies allergies to eggs, neomycin, latex, or gelatin.VIS sheet given to patient, questions answered and consent obtained for vaccination.Flu vaccine given without incident. Pt tolerated well.Discussed sx of reaction/ when to notify provider.NM Follow Up of diabetes Risk facto rs include: obesity and over age [age] years old. He Has been managed with oral medications. Comorbidity: Hypertension. The patient understands medication. Additional information: labs drawn 07/17/17. Has lost weight. need refills for lisinopril and metformin.. Follow Up of hypertension Comorb id conditions include diabetes mellitus. It is currently improving. Risk factors include family history HTN, gout or CAD, male gender and obesity. Pertinent negatives include chest pain, dyspnea, fatigue, irregular heartbeat/palpitations and visual disturbances. He does not have barriers to taking medication. The patient has appropriate response to medication. The patient understands medication. hypertension Comorbid conditi ons include diabetes mellitus. Risk factors include family history HTN, gout or CAD, male gender and obesity. Pertinent negatives include chest pain, dyspnea, irregular heartbeat/palpitations, visual disturbances and vomiting. He does not have barriers to taking medication. The patient has appropriate response to medication. The patient understands medication. diabetes Risk factors inc lude: obesity and over age [age] years old. He Has been managed with oral medications. Comorbidity: Hypertension. shoulder pain Location: bilate ral shoulder. The [...] arms, tingling in the legs and weakness. hypertension Comorbid conditi ons include diabetes mellitus. [...] to taking medication The patient understands medication. Instructions Date Instruction Additional Infor mavis A summary of your treatment goals based on the recommendations of the [place] [employer] Standards of Care 2017 Your [...] goals based on the recommendations of the [place] [employer] Standards of Care 2017 Your [...]
--- NOTE | ~2025-06-17 | US_ITS ---
EXAMINATION: US ABDOMEN HISTORY: R74.8 - Abnormal levels of other serum enzymes TECHNIQUE: Real-time grayscale ultrasound imaging of the abdomen was performed and images were reviewed. COMPARISON: There are no prior studies available for comparison. FINDINGS: Liver: The right lobe of the liver measures 17.4 cm in size. The left lobe of the liver measures 9.1 cm in size. The liver demonstrates mildly increased echotexture, consistent with steatosis. No focal mass or intrahepatic biliary ductal dilatation is identified. There is normal hepatopedal flow in the portal vein. Gallbladder and biliary tree: The gallbladder is unremarkable, without evidence of calculi, wall thickening, or pericholecystic fluid. There is no sonographic Huggins sign. The common bile duct is normal in caliber measuring 3 mm. Kidneys: The right kidney measures 10.4 cm in length and demonstrates a 5 mm cyst with wall calcification. The left kidney measures 11.2 cm in length and demonstrates an 8 mm cyst with wall calcification. The kidneys are otherwise unremarkable, without evidence of hydronephrosis or calculi. Pancreas: The pancreatic head, neck, and body are unremarkable. The pancreatic tail is obscured by bowel gas. Spleen: The spleen is normal in size and contour, measuring 11.2 cm in length. Abdominal aorta and inferior vena cava: The visualized portions of the abdominal aorta and inferior vena cava are normal in caliber. There is no free fluid in the abdomen. US/US abdomen complete IMPRESSION: 1. Mild hepatic steatosis. 2. Bilateral subcentimeter renal cysts containing wall calcification. Follow-up is suggested. Electronically signed by: Reza Yarbrough MD 06/17/2025 09:12 AM EDT
--- OUTSIDE RECORDS SUMMARY | 2025-06-17 09:07 | XMS_ITS | Clinical Summary ---
Author Organization [employer] Address [address] [facility] [address] [place] [address] Care Team Providers Care Area Sales Manager Name Role Phone Unavailable Primary Care Provider [...] Description 05/29/2025 10:00 AM EDT Office Visit [facility]ULT [facility] [address] [place] [address] Onofre Balderrama DDS 05/19/2025 10:30 AM EDT Office Visit [facility] [address] [place] [address] Onofre Balderrama DDS 05/05/2025 9:00 AM EDT Office Visit [facility] [address] [place] [address] Onofre Balderrama DDS 03/17/2025 9:00 AM EDT Office Visit [facility] [address] [place] [address] Onofre Balderrama DDS from Last 3 Months [...] Description 06/30/2025 3:30 PM EDT Office Visit [facility] [address] [place] [address] Onofre Balderrama DDS [address] [place] [address] Health Maintenance Due Date Last Done Comments [...] COVID-19 Vaccine (1 - 2023-2 5 season) 2025 Influenza Vaccine (#1) 2025 Dental Oral Exam [...] Most Recently Relevant to Health Maintenance Insurance [facility] MEDICAID STAND ADULT
== END 2025-06-17 08:12 | disposition home or self-care (01) ==
LOC: HO.US 08:11
PROVIDERS: PCP Internal Medicine; Visit Provider Internal Medicine
DX: R74.8 Abnormal levels of other serum enzymes (principal)
CPT/HCPCS: 76700

== ENCOUNTER → 2025-06-17 08:13 | Outpatient (BNV) | payer OTHER, SELFPAY | PROVIDERS: PCP Internal Medicine; Visit Provider Radiology Diagnostic Radiology | DX: K76.0 Fatty (change of) liver, not elsewhere classified (principal); N28.1 Cyst of kidney, acquired | CPT/HCPCS: 76700 ==

== ENCOUNTER 2025-07-27 08:23 | Outpatient (AMB) | payer OTHER, SELFPAY ==
--- NOTE | 2025-07-27 08:38 | MHC.PC.OV ---
Vital Signs 07/27/25 08:39 Height 5 ft 8 in Weight 180 lb 8 oz BMI 27.4 BP 140/60 H Blood Pressure Location Lt brachial Position Sitting Pulse 71 Pulse Source Pulse Oximeter Temp 97.3 F Temp Source Temporal Artery Scan Pulse Oximetry (%) 98 Oxygen Delivery Method Room Air Intake Visit Reasons: ? sinus infection Intake Note: Patient complains of Sinus infection?. Symptoms of running nose, sinus headaches, blurry vision, watery eye with pressure ongoing more than a month. OTC had not helped. Barrel Loader And Cleaner Required: No Education Site Manager: Not Required per policy Accompanied by: Self / Same As Patient Allergies acetaminophen (ACETAMINOPHEN) Allergy (Intermediate, Verified 07/27/25 08:39) RASH Medication List - Last Reconciled 07/27/25 by Viky Juarez MD amlodipine 10 mg PO DAILY 90 days blood pressure test kit-large As directed; for BP checks daily fluticasone propionate 50 mcg/actuation 2 sprays intranasal DAILY ibuprofen 800 mg PO TID 30 days nicotine 1 patch transdermal DAILY 7 days nicotine 1 patch transdermal DAILY 7 days nicotine 1 patch transdermal Q24H 28 days tamsulosin 0.4 mg PO BEDTIME 30 days Ventolin HFA 90 mcg/actuation (albuterol sulfate) 2 puffs inhalation Q6H PRN 30 days NS Tobacco use date assessed: 07/27/25 Fall risk assessment: No Falls in past year Last assessed Fall Risk: 07/27/25 Dental Screening Dental Screen Date: 06/03/25 HPI HPI Comments History of Present Illness Details The patient is a 64-year-old male presenting with sinusitis. He reports a history of sinus infections for over 30 years, with the current episode of nonstop post-nasal drip lasting for almost the entire year. Symptoms include headaches, sinus pressure, and significant sleep disruption, as he wakes every 1-2 hours to clear his sinuses. The patient reports no fever or chills. He notes a metallic taste to the phlegm, which caused him to worry about a possible cerebrospinal fluid leak. Past interventions include seeing numerous ENT specialists and a prior procedure to place tubes in his nose. His last visit to an ENT in [place] was one to two years ago. He reports that Flonase is not effective, and for the past two weeks, he has been using a homemade saline solution made from sea salt and boiled water. The patient had a significant adverse reaction after taking Benadryl last week, experiencing slurred speech to the point where he and others feared he was having a stroke. His medications include amlodipine 10 mg. [facility] Medical History Smoker Benign essential hypertension Overweight (BMI 25.0-29.9) Blurred vision, bilateral Surgical History History of sinus surgery H/O repair of right rotator cuff (~2011) H/O bilateral inguinal hernia repair H/O arthroscopy of right knee (~1979) Family History (Updated 07/27/25 @ 08:38 by IRAM Etienne) Mother COPD (chronic obstructive pulmonary disease) Father Lung cancer Social History (Updated 07/27/25 @ 08:45 by IRAM Etienne) Housing: House Alcohol intake: never Patient Tobacco Use Status: Current everyday Tobacco user Tobacco use type: Cigarette Cigarette Packs Per Day: 0.5 Cigarettes Per Day: 6 e-Cigarette/Vaping Use: Never Used Second Hand Smoke Exposure: Yes service: No Current occupational status: unemployed Current occupational exposures/hazards: No Cognitive needs: No Hearing needs: No Vision needs: No Questionnaire Thrive Questionnaire Date Thrive assessed: 01/21/25 I am a: Patient What is your living situation today?: I choose not to answer this question Within the past 12 months, did the food you bought not last and you didn't have the money to get more?: I choose not to answer this question Within the past 12 months, did you worry whether your food would run out before you got money to buy more?: I choose not to answer this question Do you have trouble paying for medicines?: I choose not to answer this question Do you have trouble getting transportation to medical appointments?: I choose not to answer this question Do you have trouble paying your heating and electricity bill?: I choose not to answer this question Do you have trouble taking care of your child, family member or friend?: I choose not to answer this question Do you have trouble with day-to-day activities such as bathing, preparing meals, shopping, managing finances, etc.?: I choose not to answer this question Are you currently unemployed and looking for a job?: I choose not to answer this question Are you interested in more education?: I choose not to answer this question Please select the resources that you would like help with: None Currently or been in a relationship where the following occur: I choose not to answer THRIVE Score: 0 CASSIE-7 AMB Questionnaire CASSIE-7 Date CASSIE - 7 assessed: 06/03/25 Source: Developed by Drs. Reza Pearl, Tanya Plasencia, Shai Delaney and colleagues, with an educational jeanette from [employer]. Review of Systems Const Details: As per HPI. Physical exam (Primary Care) Vital Signs: Last Vital Signs Temp 97.3 F 07/27/25 08:39 Pulse 71 07/27/25 08:39 BP 140/60 H 07/27/25 08:39 Pulse Ox 98 07/27/25 08:39 Oxygen Delivery Method Room Air 07/27/25 08:39 BMI result Body Mass Index 27.4 Tobacco/Smoking Status: Tobacco use Status Tobacco use date assessed 07/27/25 07/27/25 08:46 Patient Tobacco Use Status Current everyday Tobacco 07/27/25 08:46 Tobacco use type Cigarette 07/27/25 08:45 e-Cigarette/Vaping Use Never Used 07/27/25 08:46 Thrive Assessment: Date of Thrive Assessment Date Thrive assessed 01/21/25 07/27/25 08:46 Currently or been in a relationship where the following occur: I choose not to answer Const Other: Pertinent findings are in BOLD GENERAL APPEARANCE NAD, activity normal for age, well developed/ well nourished, no cyanosis, pallor, or diaphoresis. EYES lids/conjunctiva normal. EARS/NOSE/THROAT Mucous membranes moist, nares normal, lips/teeth normal uvula midline without oral pharyngeal erythema, exudate or swelling TMs normal bilaterally. No lymphangitis/lymphedema. HEAD/NECK normocephalic atraumatic, no facial trauma, neck is supple. RESPIRATORY respiratory effort normal, speaks in full sentences, no tripod position, no accessory muscle use. Lungs clear to auscultation without rhonchi, wheezes, rales CARDIAC Regular rate and rhythm, no edema. ABDOMINAL Soft, ND/NT. No evidence of fluid wave. No pulsatile masses on exam, rebound tenderness, Huggins sign or pain over Mcburney's point. MUSCLES/EXTREMITIES No abnormal range of motion, no swelling. SKIN Warm, pink and dry. No rashes, dermatoses, petechiae or lesions. NEUROLOGICAL Speech is clear and appropriate. Normal level of consciousness. Gait and coordination are normal. 5/5 strength in all extremities. PSYCH Normal mood and affect. Judgement/competence is appropriate Coding Level of Care Code Est Pt Level 3 (02016) Diagnoses Acute non-recurrent maxillary sinusitis J01.00 Chronicity: acute Recurrence: non-recurrent Sinusitis location: maxillary Time Spent (min) 20 Assessment & Plan Assessment & Plan (1) Sinusitis: Code(s): J32.9 - Chronic sinusitis, unspecified Category: Medical Qualifiers: Chronicity: acute Recurrence: non-recurrent Sinusitis location: maxillary Qualified Code(s): J01.00 - Acute maxillary sinusitis, unspecified Plan: Augumentin for 7 days. Continue flonase. The patient was advised on seeing ENT again, despite unsuccessful procedure in the past. New ENT referral placed. Plan I discussed the patient's severe and chronic sinus symptoms, primarily the unceasing post-nasal drip. While acknowledging his concern about a CSF leak, I explained it is less likely without a history of significant trauma. I have prescribed a 7-day course of Augmentin for a presumed bacterial component. I emphasized continuing Flonase for long-term inflammation control. I advised that if the antibiotic does not resolve the acute episode, he should schedule an appointment with an ENT specialist for re-evaluation. I provided him with the phone number for his previous ENT group to facilitate scheduling. Orders: Referrals Ear/Nose/Throat Referral J01.00 - Acute maxillary sinusitis, unspecified Medications: New amoxicillin-pot clavulanate 875-125 mg 1 tab PO BID 14 tabs 0RF Refilled nicotine 1 patch transdermal DAILY 7 ea 0RF 7 days F17.200 - Nicotine dependence, unspecified, uncomplicated tamsulosin 0.4 mg PO BEDTIME 30 caps 3RF 30 days R39.15 - Urgency of urination Ventolin HFA 90 mcg/actuation (albuterol sulfate) 2 puffs inhalation Q6H PRN 18 grams 1RF shortness of breath or wheezing 30 days NS F17.200 - Nicotine dependence, unspecified, uncomplicated amlodipine 10 mg PO DAILY 90 tabs 1RF 90 days I10 - Essential (primary) hypertension nicotine 1 patch transdermal DAILY 7 ea 0RF 7 days F17.200 - Nicotine dependence, unspecified, uncomplicated nicotine 1 patch transdermal Q24H 28 ea 5RF 28 days F17.200 - Nicotine dependence, unspecified, uncomplicated
[2025-07-27 08:39] VITALS: BP 140/60; PULSE 71; TEMP 36.3; O2SAT 98; BMI 27.4
--- OUTSIDE RECORDS SUMMARY | 2025-07-27 08:39 | XMS_ITS | Clinical Summary ---
Author Organization [employer] Address [address] [facility] [address] [place] [address] Care Team Providers Care Engine Dispatcher Name Role Phone Unavailable Primary Care Provider [...] Encounters Date Type Department Care Team Description 07/17/2025 3:30 PM EDT Office Visit [facility]ULT [facility] [address] [place] [address] Onofre Balderrama DDS 07/07/2025 3:00 PM EDT Office Visit [facility] [address] [place] [address] Onofre Balderrama DDS 06/30/2025 3:30 PM EDT Office Visit [facility] [address] [place] [address] Onofre Balderrama DDS 05/29/2025 10:00 AM EDT Office Visit [facility] [address] [place] [address] Onofre Balderrama DDS 05/19/2025 10:30 AM EDT Office Visit [facility] [address] [place] [address] Onofre Balderrama DDS 05/05/2025 9:00 AM EDT Office Visit [facility] [address] [place] [address] Onofre Balderrama DDS from Last 3 Months [...] Sign Reading Time Taken Comments Blood Pressure 180/80 07/07/2025 3:05 PM EDT Pulse 70 05/19/2025 10:27 AM EDT Temperature - - Respiratory Rate - - Oxygen Saturation - - Inhaled Oxygen Concentration - - Weight - - Height - - Body Mass Index - - Plan of Treatment Upcoming Encounters Date Type Department Care Team (Late st Contact Info) Description 07/28/2025 11:30 AM EDT Office Visit [facility] [address] [place] [address] Health Maintenance Due Date Last Done Comments [...] Oral Exam 07/31/2025 01/28/2025, 06/26/2017 Tobacco Screening 07/17/2026 07/17/2025 Dental X-Ray: Full Mouth 01/30/2028 025, 06/26/2017 [...] Procedure Name Priority Date/Time Associated Diagnosis Comments WAX TRY IN Routine 07/17/2025 3:30 PM EDT WAX TRY IN Routine 07/07/2025 3:00 PM EDT BITE REGISTRATION Routine 06/30/2025 3:3 0 PM EDT DENTURE IMPRESSION Routine 05/29/2025 10 :00 AM [...] (ELEVATION/FORCEPS REMOVAL) Routine 05/05/2025 9:00 AM EDT PANORAMIC RADIOGRAPHIC IMAGE Routine 01/28/2025 10:00 AM EDT PERIODIC ORAL EVALUATION - ESTABLISHED PATIENT Routine 01/28/2025 10:00 AM EDT INTRAORAL - COMPLETE SERIES OF RADIOGRAPHIC IMAGES Routine 06/26/2017 12:00 AM EDT from Last 3 Months or Most Recently Relevant to Health Maintenance Insurance [facility] MEDICAID STAND ADULT
== END 2025-07-27 09:50 | disposition home or self-care (01) ==
LOC: HO.HMCH 08:24
PROVIDERS: PCP Internal Medicine; Visit Provider Internal Medicine
DX: J01.00 Acute maxillary sinusitis, unspecified (principal)

== ENCOUNTER → 2025-07-27 08:23 | Outpatient (BNVA) | payer OTHER, SELFPAY | PROVIDERS: PCP Internal Medicine; Visit Provider Internal Medicine | DX: J01.00 Acute maxillary sinusitis, unspecified (principal); F17.200 Nicotine dependence, unspecified, uncomplicated | CPT/HCPCS: 99212 ==

== ENCOUNTER 2025-09-10 07:50 | Outpatient (REF) | payer MEDICAID, SELFPAY ==
--- OUTSIDE RECORDS SUMMARY | 2025-09-10 08:04 | XMS_ITS | Clinical Summary ---
Author Organization [employer] Address [address] [facility] [address] [place] [address] Care Team Providers Care Enrober Tender Name Role Phone Unavailable Primary Care Provider [...] Encounters Date Type Department Care Team Description 07/28/2025 11:30 AM EDT Office Visit [facility] ADULT [facility] [address] [place] [address] Onofre Balderrama DDS 07/24/2025 2:00 PM EDT Office Visit [facility] [address] [place] [address] Onofre Balderrama DDS 07/17/2025 3:30 PM EDT Office Visit [facility] [address] [place] [address] Onofre Balderrama DDS 07/07/2025 3:00 PM EDT Office Visit [facility] [address] [place] [address] Onofre Balderrama DDS 06/30/2025 3:30 PM EDT Office Visit [facility] [address] [place] [address] Onofre Balderrama DDS from Last 3 Months [...] Mass Index - - Plan of Treatment Health Maintenance Due Date Last Done Comments CT Colonography 1960 Colonoscopy 1960 Colorectal Cancer Screening 1960 Dental Prophylaxis 1960 Depression Screening 1960 FIT DNA/Cologuard 1960 FIT 1960 FOBT 1960 Lipid Panel 1960 SDOH Screening 1960 Sigmoidoscopy 1960 Alcohol/Substance Use Screening 1972 Hepatitis C Screening 1978 Pneumococcal Vaccine: 50+ Years (1 of 2 - PCV) 1979 Zoster Vaccines (1 of 2) 2010 Dental X-Ray: Bitewings 06/27/2018 06/26/2017 DTaP/Tdap/Td Vaccines (1 - Tdap) 03/21/2019 03/20/2019 COVID-19 Vaccine (1 - 2024-2 6 season) 2025 Influenza Vaccine (#1) 2025 Dental [...] Procedure Name Priority Date/Time Associated Diagnosis Comments CASE PRESENTATION, DETAILED AND EXTENSIVE TREATMENT PLANNING Routine 07/28/2025 11:30 AM EDT [place] COMPLETE DENTURE - MANDIBULAR Routine 07/28/2025 11:30 AM EDT Max COMPLETE DENTURE - MAXILLARY Routine 07/28/2025 11:30 AM EDT NO CHARGE VISIT Routine 07/24/2025 2:00 PM EDT WAX TRY IN Routine 07/17/2025 3:30 PM EDT WAX TRY IN Routine 07/07/2025 3:00 PM EDT BITE REGISTRATION Routine 06/30/2025 3:3 0 PM EDT PANORAMIC RADIOGRAPHIC IMAGE Routine 01/28/2025 10:00 AM EDT PERIODIC ORAL EVALUATION - ESTABLISHED PATIENT Routine 01/28/2025 10:00 AM EDT INTRAORAL - COMPLETE SERIES OF RADIOGRAPHIC IMAGES Routine 06/26/2017 12:00 AM EDT from Last 3 Months or Most Recently Relevant to Health Maintenance Insurance [facility] MEDICAID STAND ADULT
[2025-09-10 08:15] LABS: MANUAL DIFF FLAG NO
[2025-09-10 08:35] LABS: Hematocrit 48.2 % (42.0-52.0); Hemoglobin 16.5 g/dl (14.0-18.0); Imm Gran Abs Auto 0.01 X10*3/uL (0.00-0.03); Imm Gran Pct Auto 0.2 % (0.0-0.4); Lymphocytes Absolute Auto 1.2 X10*3/uL (1.2-4.9); Mean Corpuscular HGB Conc 34.2 g/dl (31.0-36.0); Mean Corpuscular Hemoglobin 30.9 pg (27.0-33.0); Mean Corpuscular Volume 90.3 fL (80.0-98.0); NRBC Abs Auto 0.000 X10*3/uL (0.0-0.012); NRBC Pct Auto 0.0 /100WBC (0.0-0.2); Platelet Count 175 X10*3/uL (160-400); Red Blood Count 5.34 X10*6/uL (4.60-5.80); White Blood Count 4.3 X10*3/uL (4.8-10.8)
[2025-09-10 09:27] LABS: Hemoglobin A1C 150.3676 umol/L
[2025-09-10 09:42] LABS: Alanine Aminotransferase 147 U/L (0-40); Albumin Level 4.4 g/dL (3.5-5.0); Alkaline Phosphatase 146 U/L (39-117); Anion Gap 11 (12-20); Aspartate Amino Transferase 191 U/L (5-37); Blood Urea Nitrogen 18 mg/dL (9-16); Calcium 9.5 mg/dL (8.4-10.2); Carbon Dioxide 29 mmol/L (22-29); Chloride 104 mmol/L (96-108); Estimated Glomerular Filt Rate > 60; Potassium 4.4 mmol/L (3.3-5.1); Sodium 140 mmol/L (135-145); Total Protein 8.2 g/dL (6.5-8.0)
[2025-09-10 09:52] LABS: Ferritin 239 ng/mL (20-250)
[2025-09-10 09:53] LABS: HBS Num1 0.04 mIU/mL (0-7.99); HBc Num1 7.29 S/CO (0.00-0.79); HBsAGNum1 0.54 S/CO (0.00-0.99); Hepatitis A Antibody IgM 0.17 Index (0-0.79); Hepatitis B Surface Antigen Negative (Negative); ~HepC Num1 15.26 S/CO (0.00-0.79); ~Hepatitis A Antibody IgM Nonreactive (Nonreactive); ~Hepatitis B Surface Antibody NONREACTIVE (Nonreactive); ~Hepatitis C Antibody Reactive (Nonreactive)
[2025-09-10 09:56] LABS: Gamma Glutamyl Transpeptidase 152 U/L (11-51)
[2025-09-10 12:33] LABS: HBc Num2 7.43 S/CO
[2025-09-10 12:37] LABS: HBc Num3 7.52 S/CO
[2025-09-11 07:14] LABS: Hepatitis B Core Antibody IgM NON-REACTIVE (NON-REACTIVE)
[2025-09-22 03:23] LABS: FIB-ALT 103 U/L (9-46); FIB-Alpha-2-Macroglobulin 599 mg/dL (106-279); FIB-Apolipoprotein A1 138 mg/dL (94-176); FIB-GGT 122 U/L (3-70); FIB-Haptoglobin 43 mg/dL (43-212); FIB-Total Bilirubin 0.8 mg/dL (0.2-1.2); Liver Fibrosis Score 0.95; Liver Fibrosis Stage F4; Nec Inflam Act Grade A3; Nec Inflam Act Score 0.79
== END 2025-09-10 07:51 | disposition home or self-care (01) ==
LOC: HO.LAB 07:50
PROVIDERS: PCP Internal Medicine; Visit Provider Internal Medicine
DX: R79.89 Other specified abnormal findings of blood chemistry (principal); L28.2 Other prurigo; R73.01 Impaired fasting glucose; D64.9 Anemia, unspecified; R30.0 Dysuria; I10 Essential (primary) hypertension; N28.1 Cyst of kidney, acquired; N40.1 Benign prostatic hyperplasia with lower urinary tract symptoms; R39.11 Hesitancy of micturition; F17.210 Nicotine dependence, cigarettes, uncomplicated
CPT/HCPCS: 36415; 80053; 81596; 82248; 82728; 82977; 83036; 83615; 85025; 85652; 86140; 86704; 86705; 86706; 86709; 86803; 87340; 96127; 99212

== ENCOUNTER 2025-09-10 10:12 | Outpatient (AMB) | payer MEDICAID, SELFPAY ==
--- NOTE | 2025-09-10 10:33 | A.OFFPC_ITS ---
Vital Signs 09/10/25 10:34 09/10/25 11:01 Height 5 ft 8 in Weight 182 lb 2 oz BMI 27.7 BP 156/90 H 150/98 H Blood Pressure Location Lt brachial Lt brachial Position Sitting Sitting Pulse 82 Pulse Source Pulse Oximeter Pulse Oximetry (%) 95 Oxygen Delivery Method Room Air Intake Visit Reasons: 3 months Biochemistry Technician Required: No Accompanied by: Self / Same As Patient Allergies acetaminophen (ACETAMINOPHEN) Allergy (Intermediate, Verified 09/10/25 10:55) RASH Medication List - Last Reconciled 09/10/25 by Edi Salazar MD amlodipine 10 mg PO DAILY 90 days blood pressure test kit-large As directed; for BP checks daily fluticasone propionate 50 mcg/actuation 2 sprays intranasal DAILY ibuprofen 800 mg PO TID 30 days nicotine 1 patch transdermal DAILY 7 days nicotine 1 patch transdermal DAILY 7 days nicotine 1 patch transdermal Q24H 28 days tamsulosin 0.4 mg PO BEDTIME 30 days Ventolin HFA 90 mcg/actuation (albuterol sulfate) 2 puffs inhalation Q6H PRN 30 days NS Tobacco use date assessed: 09/10/25 Fall risk assessment: No Falls in past year Last assessed Fall Risk: 09/10/25 Dental Screening Dental Screen Date: 09/10/25 Did you have a dental visit in the last 12 months?: Yes Did you have a dental problem in the last 6 months where you did not have access to dental care?: No Was dental information given to patient?: Patient has dentist HPI 3 months HPI Details Patient comes in today for his follow up visit States that he feels okay He admits that he stopped taking his Amlodipine 10 mg a few weeks ago as he recalls feeling very dizzy and lightheaded when he was taking the 10 mg dose; states that he did not have any problems while on 5 mg daily States that he called back here for the above issue but he could not get an appointment to come in and he ended up just stopping the medication but a review of his call logs indicated that he stated then that he could not come in because he had a dentist appointment to keep that day and he never called back afterwards to follow up on this He currently denies any headaches or dizziness Denies any chest pains, no increased SOB No nausea/vomiting, no abdominal pain No change in bowel habits noted He had his follow up labs done earlier today - to discuss his results [facility] Medical History Smoker Benign essential hypertension Overweight (BMI 25.0-29.9) Blurred vision, bilateral Surgical History History of sinus surgery H/O repair of right rotator cuff (~2011) H/O bilateral inguinal hernia repair H/O arthroscopy of right knee (~1979) Family History Mother COPD (chronic obstructive pulmonary disease) Father Lung cancer Social History Housing: House Alcohol intake: never Patient Tobacco Use Status: Current everyday Tobacco user Tobacco use type: Cigarette Cigarette Packs Per Day: 0.5 Cigarettes Per Day: 6 e-Cigarette/Vaping Use: Never Used Second Hand Smoke Exposure: Yes service: No Current occupational status: unemployed Current occupational exposures/hazards: No Cognitive needs: No Hearing needs: No Vision needs: No Questionnaire PHQ-9 Over the last 2 weeks, how often have you been bothered by any of the following problems? 1. Little interest or pleasure in doing things: not at all 2. Feeling down, depressed, or hopeless: not at all 3. Trouble falling or staying asleep, or sleeping too much: not at all 4. Feeling tired or having little energy: not at all 5. Poor appetite or overeating: not at all 6. Feeling bad about yourself - or that you are a failure or have let yourself or your family down: not at all 7. Trouble concentrating on things, such as reading the newspaper or watching television: not at all 8. Moving or speaking so slowly that other people could have noticed. Or the opposite - being so fidgety or restless that you have been moving around a lot more than usual: not at all 9. Thoughts that you would be better off or of hurting yourself in some way: not at all Total score: 0 Depression Screening Interpretation: Negative Depression Screening Done: Yes 52218 - PHQ-9 Billing: Yes Source: Developed by Tanya Oliveira.W. Luis Angel, Shai Delaney and colleagues, with an educational jeanette from [employer]. Thrive Questionnaire Date Thrive assessed: 09/10/25 I am a: Patient What is your living situation today?: I choose not to answer this question Within the past 12 months, did the food you bought not last and you didn't have the money to get more?: I choose not to answer this question Within the past 12 months, did you worry whether your food would run out before you got money to buy more?: I choose not to answer this question Do you have trouble paying for medicines?: I choose not to answer this question Do you have trouble getting transportation to medical appointments?: I choose not to answer this question Do you have trouble paying your heating and electricity bill?: I choose not to answer this question Do you have trouble taking care of your child, family member or friend?: I choose not to answer this question Do you have trouble with day-to-day activities such as bathing, preparing meals, shopping, managing finances, etc.?: I choose not to answer this question Are you currently unemployed and looking for a job?: I choose not to answer this question Are you interested in more education?: I choose not to answer this question Please select the resources that you would like help with: None Currently or been in a relationship where the following occur: I choose not to answer THRIVE Score: 0 AUDIT C Alcohol Use Questionnaire (AUDIT-C) 1. How often do you have a drink containing alcohol?: Never 3. How often do you have six or more drinks on one occasion?: Never Total Score: 0 Score Reviewed/Action Taken: Yes CASSIE-7 AMB Questionnaire CASSIE-7 Date CASSIE - 7 assessed: 09/10/25 Feeling nervous, anxious, or on edge: 0 = Not at all Not being able to stop or control worryin = Not at all Worrying too much about different things: 0 = Not at all Trouble relaxin = Not at all Being so restless that it is hard to sit still: 0 = Not at all Becoming easily annoyed or irritable: 0 = Not at all Feeling afraid as if something awful might happen: 0 = Not at all Total CASSIE-7 score (0-4 normal; 5-9 mild; 10-14 moderate; 15-21 severe): 0 Source: Developed by Drs. Reza Pearl, Tanya Plasencia, Shai Delaney and colleagues, with an educational jeanette from [employer]. Review of Systems Const Denies chills, Denies fatigue, Denies fever(s) and Denies headache(s) ENT Denies dysphagia, Denies dizziness, Denies otalgia, Denies headache(s), Denies neck pain, Denies odynophagia and Denies sore throat Card Denies chest pain, Denies irregular heart rhythm, Denies palpitations and Denies dyspnea Resp Denies chest congestion, Denies cough, Denies dyspnea and Denies wheezing GI Denies abdominal pain, Denies constipation, Denies dysphagia, Denies heartburn, Denies diarrhea, Denies nausea, Denies odynophagia and Denies vomiting Denies difficulty urinating, Denies dysuria and Denies urinary frequency Musc Denies back pain, Denies arthralgias and Denies neck pain Skin/Breast Denies rash Neuro Denies dizziness, Denies headache(s) and Denies paresthesias Endo Denies fatigue and Denies palpitations Aller/Immun Denies wheezing Physical exam (Primary Care) Vital Signs: Last Vital Signs Pulse 82 09/10/25 10:34 BP 150/98 H 09/10/25 11:01 Pulse Ox 95 09/10/25 10:34 Oxygen Delivery Method Room Air 09/10/25 10:34 BMI result Body Mass Index 27.7 Tobacco/Smoking Status: Tobacco use Status Tobacco use date assessed 09/10/25 09/10/25 10:36 Patient Tobacco Use Status Current everyday Tobacco 09/10/25 10:36 Tobacco use type Cigarette 09/10/25 10:36 e-Cigarette/Vaping Use Never Used 09/10/25 10:36 PHQ-9: PHQ-9 Score PHQ-9: Total score 0 09/10/25 11:08 Depression Screening Interpretation: Negative Thrive Assessment: Date of Thrive Assessment Date Thrive assessed 09/10/25 09/10/25 10:36 Currently or been in a relationship where the following occur: I choose not to answer Const General: no acute distress and alert HENMT Ears: TM's normal bilaterally and EAC's normal Throat: Yes posterior oropharynx normal and Yes tonsils normal (no TP congestion) Neck Neck: Yes supple and No lymphadenopathy Thyroid: Thyroid normal Resp Auscultation: no rales, no wheezes and diminished lung sounds bilateral Cardio Rate: regular rate Rhythm: regular rhythm Heart sounds: no murmurs GI Palpation (GI): Soft to palpation and nontender Auscultation: normal bowel sounds General: Yes no CVA tenderness Back/Spine/Pelvis Back: no CVA tenderness Thoracic/Lumbar Spine: No lumbar spinal tenderness Skin Rashes: no rashes Extrem General: Yes no clubbing, cyanosis or edema Results Reviewed Results Reviewed: Laboratory Tests 09/10/25 08:14 WBC 4.3 L Hgb 16.5 Hct 48.2 Plt Count 175 ESR 31 H Sodium 140 Potassium 4.4 Creatinine 0.94 Estimated GFR > 60 Random Glucose 109 Hemoglobin A1c % 5.4 Calcium 9.5 Ferritin 239 Total Bilirubin 1.2 H GGT 152 H AST 191 H ALT 147 H Lactate Dehydrogenase 197 C-Reactive Protein 0.15 Coding Level of Care Code Est Pt Level 4 (32338) Diagnoses Benign essential hypertension I10 Elevated LFTs R79.89 Renal cysts, acquired, bilateral N28.1 Benign prostatic hyperplasia with urinary hesitancy N40.1; R39.11 Lower urinary tract symptom detail: urinary hesitancy Smoker F17.200 Additional Codes PHQ-9 - 31232 - PHQ-9 Billing: Yes ([id number]) Assessment & Plan Assessment & Plan (1) Benign essential hypertension: Code(s): I10 - Essential (primary) hypertension Category: Medical Plan: Reinforced low sodium diet - goal is systolic BP of at least 120 to 130 mm or less He was most recently on Amlodipine 10 mg QD but he admitted to stopping his Rx a few weeks ago as he was experiencing recurrent dizziness/lightheadedness often while he was on the medication States that his symptoms resolved after he stopped taking his Amlodipine Will start him back on his Rx as his blood pressure is high again at present, but will just keep him on 5 mg QD at this time He is advised to try monitoring his blood pressure regularly (2) Elevated LFTs: Code(s): R79.89 - Other specified abnormal findings of blood chemistry Category: Medical Plan: Results of his labs done earlier today reviewed and discussed with patient but he is advised that several of his labs, including his liver fibrosis panel and hepatitis profile, are still pending at this time and some of them may take a few days for their results to come out as they are sent to outside labs for processing - we will reach out to him when these are back and if they show any unusual or abnormal findings He is advised that his LFTs are still significantly elevated although they have decreased somewhat from his previous numbers Patient denies drinking alcohol for years now and states that he hardly takes any medications, especially Tylenol or Acetaminophen (he gets a rash from taking them) Abdominal US done back in June 2025 revealed (+) mild hepatic steatosis. There are bilateral subcentimeter renal cysts containing wall calcification seen incidentally and follow-up on these is suggested (3) Renal cysts, acquired, bilateral: Code(s): N28.1 - Cyst of kidney, acquired Category: Medical Plan: These were seen incidentally on his abdominal US done back in June 2025 and follow up imaging on these is recommended to ensure stability Have advised patient that we will order and schedule him for renal US for further evaluation when he returns in a few months for his follow up visit (4) Benign prostatic hyperplasia with lower urinary tract symptoms: Code(s): N40.1 - Benign prostatic hyperplasia with lower urinary tract symptoms Category: Medical Qualifiers: Lower urinary tract symptom detail: urinary hesitancy Qualified Code(s): N40.1 - Benign prostatic hyperplasia with lower urinary tract symptoms; R39.11 - Hesitancy of micturition Plan: Continue Tamsulosin 0.4 mg Q HS Follow up with urology as scheduled (5) Smoker: Code(s): F17.200 - Nicotine dependence, unspecified, uncomplicated Category: Social Hx Plan: Patient is again counseled on complete smoking cessation - have advised him that it will also help his blood pressure if he can quit smoking Will start him back on Nicotine patches and again instructed him on the proper way to take these His chest x-rays done back in March 2025 came out normal Plan Follow up in 3 months Medications: Changed From amlodipine 10 mg PO DAILY 90 days 90 tabs 1RF I10 - Essential (primary) hypertension To amlodipine 5 mg PO DAILY 90 tabs 1RF 90 days I10 - Essential (primary) hypertension Refilled nicotine 1 patch transdermal DAILY 7 ea 0RF 7 days F17.200 - Nicotine dependence, unspecified, uncomplicated nicotine 1 patch transdermal DAILY 7 ea 0RF 7 days F17.200 - Nicotine dependence, unspecified, uncomplicated nicotine 1 patch transdermal Q24H 28 ea 5RF 28 days F17.200 - Nicotine dependence, unspecified, uncomplicated
[2025-09-10 10:34] VITALS: BP 156/90; PULSE 82; O2SAT 95; BMI 27.7
[2025-09-10 11:01] VITALS: BP 150/98
== END 2025-09-10 11:02 | disposition home or self-care (01) ==
LOC: HO.HMCH 10:13
PROVIDERS: PCP Internal Medicine; Visit Provider Internal Medicine
DX: I10 Essential (primary) hypertension (principal); R79.89 Other specified abnormal findings of blood chemistry; N28.1 Cyst of kidney, acquired; N40.1 Benign prostatic hyperplasia with lower urinary tract symptoms; R39.11 Hesitancy of micturition; F17.200 Nicotine dependence, unspecified, uncomplicated

== ENCOUNTER 2025-09-22 08:16 | Outpatient (AMB) | payer MEDICAID, SELFPAY ==
--- NOTE | 2025-09-22 08:21 | A.OFFPC_ITS ---
Vital Signs 09/22/25 08:22 Height 5 ft 8 in Weight 177 lb 8 oz BMI 27.0 BP 160/98 H Blood Pressure Location Lt brachial Position Sitting Pulse 71 Pulse Source Pulse Oximeter Temp 97.5 F Temp Source Temporal Artery Scan Pulse Oximetry (%) 98 Oxygen Delivery Method Room Air Intake Visit Reasons: back and left leg pain Intake Note: Patient is here to follow up on Back and leg pain. Life Coach Required: No Watch Mechanic: Present Accompanied by: Son Allergies acetaminophen (ACETAMINOPHEN) Allergy (Intermediate, Verified 09/22/25 08:22) RASH Medication List - Last Reconciled 09/22/25 by Viky Juarez MD amlodipine 5 mg PO DAILY 90 days blood pressure test kit-large As directed; for BP checks daily fluticasone propionate 50 mcg/actuation 2 sprays intranasal DAILY ibuprofen 800 mg PO TID 30 days nicotine 1 patch transdermal DAILY 7 days nicotine 1 patch transdermal DAILY 7 days nicotine 1 patch transdermal Q24H 28 days tamsulosin 0.4 mg PO BEDTIME 30 days Ventolin HFA 90 mcg/actuation (albuterol sulfate) 2 puffs inhalation Q6H PRN 30 days NS Tobacco use date assessed: 09/22/25 Fall risk assessment: No Falls in past year Last assessed Fall Risk: 09/22/25 Dental Screening Dental Screen Date: 09/10/25 HPI HPI Comments History of Present Illness Details The patient is a 65 year old male with PMH of HTN, COPD, BPH presenting with acute low back pain with left-sided radiation, which he describes as a pinched nerve. The pain started approximately five to six days ago with an unknown trigger and is characterized as a shooting pain originating in the lower back and radiating down his leg to the calf. The patient reports that the pain was at its worst the day before the visit, prompting him to call for an appointment, though it is somewhat better today. For self-treatment, the patient has tried using heat pads, Ibuprofen 800 mg, Midol, Aleve on one occasion, and two Flexeril tablets, none of which provided significant relief. He reports a medical history of hypertension, for which he is non-adherent with prescribed medication, and a history of a liver problem, l eading him to avoid Tylenol (although Midol contains tylenol but patient was unaware). [facility] Medical History Smoker Benign essential hypertension Overweight (BMI 25.0-29.9) Blurred vision, bilateral Surgical History History of sinus surgery H/O repair of right rotator cuff (~2011) H/O bilateral inguinal hernia repair H/O arthroscopy of right knee (~1979) Family History Mother COPD (chronic obstructive pulmonary disease) Father Lung cancer Social History Housing: House Alcohol intake: never Patient Tobacco Use Status: Current everyday Tobacco user Tobacco use type: Cigarette Cigarette Packs Per Day: 0.5 Cigarettes Per Day: 6 e-Cigarette/Vaping Use: Never Used Second Hand Smoke Exposure: Yes service: No Current occupational status: unemployed Current occupational exposures/hazards: No Cognitive needs: No Hearing needs: No Vision needs: No Questionnaire Thrive Questionnaire Date Thrive assessed: 01/21/25 I am a: Patient What is your living situation today?: I choose not to answer this question Within the past 12 months, did the food you bought not last and you didn't have the money to get more?: I choose not to answer this question Within the past 12 months, did you worry whether your food would run out before you got money to buy more?: I choose not to answer this question Do you have trouble paying for medicines?: I choose not to answer this question Do you have trouble getting transportation to medical appointments?: I choose not to answer this question Do you have trouble paying your heating and electricity bill?: I choose not to answer this question Do you have trouble taking care of your child, family member or friend?: I choose not to answer this question Do you have trouble with day-to-day activities such as bathing, preparing meals, shopping, managing finances, etc.?: I choose not to answer this question Are you currently unemployed and looking for a job?: I choose not to answer this question Are you interested in more education?: I choose not to answer this question Currently or been in a relationship where the following occur: I choose not to answer THRIVE Score: 0 CASSIE-7 AMB Questionnaire CASSIE-7 Date CASSIE - 7 assessed: 09/10/25 Source: Developed by Drs. Reza Pearl, Tanya Plasencia, Shai Delaney and colleagues, with an educational jeanette from [employer]. Review of Systems Const Details: As per HPI. Physical exam (Primary Care) Vital Signs: Last Vital Signs Temp 97.5 F 09/22/25 08:22 Pulse 71 09/22/25 08:22 BP 160/98 H 09/22/25 08:22 Pulse Ox 98 09/22/25 08:22 Oxygen Delivery Method Room Air 09/22/25 08:22 BMI result Body Mass Index 27.0 Tobacco/Smoking Status: Tobacco use Status Tobacco use date assessed 09/22/25 09/22/25 08:27 Patient Tobacco Use Status Current everyday Tobacco 09/22/25 08:27 Tobacco use type Cigarette 09/22/25 08:27 e-Cigarette/Vaping Use Never Used 09/22/25 08:27 Thrive Assessment: Date of Thrive Assessment Date Thrive assessed 01/21/25 09/22/25 08:27 Currently or been in a relationship where the following occur: I choose not to answer Const Other: Pertinent findings are in BOLD GENERAL APPEARANCE NAD, activity normal for age, well developed/ well nourished, no cyanosis, pallor, or diaphoresis. EYES lids/conjunctiva normal. EARS/NOSE/THROAT Mucous membranes moist, nares normal, lips/teeth normal uvula midline without oral pharyngeal erythema, exudate or swelling TMs normal bilaterally. No lymphangitis/lymphedema. HEAD/NECK normocephalic atraumatic, no facial trauma, neck is supple. RESPIRATORY respiratory effort normal, speaks in full sentences, no tripod position, no accessory muscle use. Lungs clear to auscultation without rhonchi, wheezes, rales CARDIAC Regular rate and rhythm, no edema. ABDOMINAL Soft, ND/NT. No evidence of fluid wave. No pulsatile masses on exam, rebound tenderness, Huggins sign or pain over Mcburney's point. MUSCLES/EXTREMITIES No abnormal range of motion, no swelling. Leg raise negative. SKIN Warm, pink and dry. No rashes, dermatoses, petechiae or lesions. NEUROLOGICAL Speech is clear and appropriate. Normal level of consciousness. Gai t and coordination are normal. 5/5 strength in all extremities. PSYCH Normal mood and affect. Judgement/competence is appropriate Coding Level of Care Code Est Pt Level 3 (95711) Diagnoses Acute left-sided low back pain with left-sided sciatica M54.42 Chronicity: acute Back pain laterality: left Sciatica presence: with sciatica Sciatica laterality: sciatica of left side Time Spent (min) 20 Assessment & Plan Assessment & Plan (1) Low back pain: Code(s): M54.50 - Low back pain, unspecified Category: Medical Qualifiers: Chronicity: acute Back pain laterality: left Sciatica presence: with sciatica Sciatica laterality: sciatica of left side Qualified Code(s): M54.42 - Lumbago with sciatica, left side Plan: - An X-ray of the back will be obtained to rule out a fracture. - A referral will be placed for physical therapy. - Continue taking ibuprofen 800 mg every eight hours as needed. - A prescription for a lidocaine patch was provided. - A prescription for diclofenac (Voltaren) gel was provided for topical application up to four times per day. - Patient was advised to avoid Tylenol (acetaminophen), and was informed that Midol contains acetaminophen. Due to liver disease. - The patient was counseled on the importance of balancing rest with gentle activity, avoiding both overexertion and prolonged rest. - A follow-up visit is scheduled in six weeks. Plan I discussed with the patient that his symptoms are most likely due to a pinched nerve, also known as sciatica. To ensure there is no underlying fracture or other serious issue, I recommended an X-ray of his back. I am referring him to physical therapy for further evaluation and treatment to help alleviate his symptoms. For pain management, I advised him to continue with regular ibuprofen and prescribed both a topical lidocaine patch and diclofenac gel. I educated him that Midol contains acetaminophen and strongly advised against its use, along with any other Tylenol products, due to his stated history of a liver problem. We also discussed the importance of balancing rest with gentle activity. I offered a follow-up appointment in six weeks. Orders: Orders PT Evaluation and Treatment Today M54.50 - Low back pain, unspecified XR lumbar spine 2-3V Today M54.50 - Low back pain, unspecified Medications: New lidocaine 4% (Aspercreme (lidocaine)) 1 patch topical DAILY PRN 10 ea 0RF pain diclofenac sodium 1% (Voltaren Arthritis Pain) apply to single elbow, wrist or hand; for hand includes palm/fingers/back of hand 2 grams topical QID 100 grams 0RF
--- OUTSIDE RECORDS SUMMARY | 2025-09-22 08:21 | XMS_ITS | Clinical Summary ---
Author Organization [employer] Address [address] [place] [address] Care Team Providers Care Trapper Animal Name Role Phone Unavailable Primary Care Provider [...] Description 07/28/2025 11:30 AM EDT Office Visit [facility] [address] [place] [address] Onofre Balderrama DDS 07/24/2025 2:00 PM EDT Office Visit [facility] [address] [place] [address] Onofre Balderrama DDS 07/17/2025 3:30 PM EDT Office Visit [facility] [address] [place] [address] Onofre Balderrama DDS 07/07/2025 3:00 PM EDT Office Visit [facility] [address] [place] [address] Onofre Balderrama DDS 06/30/2025 3:30 PM EDT Office Visit [facility] [address] [place] [address] Onofre Balderrama DDS from Last 3 Months [...] Most Recently Relevant to Health Maintenance Insurance [facility] MEDICAID STAND ADULT
[2025-09-22 08:22] VITALS: BP 160/98; PULSE 71; TEMP 36.4; O2SAT 98; BMI 27.0
== END 2025-09-22 08:53 | disposition home or self-care (01) ==
LOC: HO.HMCH 08:17
PROVIDERS: PCP Internal Medicine; Visit Provider Internal Medicine
DX: M54.42 Lumbago with sciatica, left side (principal)

== ENCOUNTER 2025-09-22 08:16 | Outpatient (REF) | payer MEDICAID, SELFPAY ==
--- NOTE | ~2025-09-22 | XR_ITS ---
EXAMINATION: XR LUMBOSACRAL SPINE CLINICAL INFORMATION: M54.50 - Low back pain, unspecified COMPARISON: None available. TECHNIQUE: Three views of the lumbosacral spine. FINDINGS: 5 nonrib-bearing lumbar type vertebral bodies. Mild dextro convex curvature. No evidence of acute fracture or spondylolisthesis. Mild L4-5, L5-S1 disc degeneration.. Multilevel facet degeneration. No suspicious lytic or blastic lesions. SI joints are symmetric. No abnormal soft tissue calcifications. XR/XR lumbar spine 2-3V IMPRESSION: No acute osseous findings Mild spondylosis. Electronically signed by: Martin Devi MD 09/22/2025 03:30 PM JOSE
== END 2025-09-22 08:17 | disposition home or self-care (01) ==
LOC: HO.XRAY 08:16
PROVIDERS: PCP Internal Medicine; Visit Provider Internal Medicine
DX: M54.42 Lumbago with sciatica, left side (principal)
CPT/HCPCS: 72100; 99212

== ENCOUNTER → 2025-09-22 09:13 | Outpatient (BNV) | payer MEDICAID, SELFPAY | PROVIDERS: PCP Internal Medicine; Visit Provider Radiology Diagnostic Ultrasound | DX: M47.816 Spondylosis without myelopathy or radiculopathy, lumbar region (principal) | CPT/HCPCS: 72100 ==